=== PATIENT | female | born 1950 | race Caucasian/White ===

== ENCOUNTER → 2017-04-15 | Outpatient (CLI) | payer MEDICARE ==
[2017-04-15 09:00] LABS: CH 30.2; CHCM 32.4; HCT 37.4 % (34.0-46.0); HDW 2.58; MCH 30.2 pg (25.0-35.0); MCHC 32.2 g/dL (31.0-37.0); MCV 93.8 fL (80.0-100.0); RBC 3.98 m/uL (3.80-5.40); RDW 14.8 % (11.5-15.5); WBC 8.2 k/uL (3.8-10.6)
[2017-04-15 09:06] LABS: INR 1.1 (<1.2); Partial Thromboplastin Time 23.8 sec (22.0-30.0); Prothrombin Time 10.7 sec (9.0-12.0)
[2017-04-15 09:23] LABS: Calcium 10.1 mg/dL (8.4-10.2); Potassium 5.1 mmol/L (3.5-5.1); Total Bilirubin 0.5 mg/dL (0.2-1.3); Total Protein 7.4 g/dL (6.3-8.2)
[2017-04-15 10:00] LABS: Appearance,Urine Cloudy (Clear); Bacteria,Urine Occasional /hpf; Bilirubin,Urine Negative (Negative); Glucose,Urine (UA) Negative (Negative); Ketones,Urine Negative (Negative); Leukocyte Esterase,Urine Moderate (Negative); Mucus,Urine Rare /hpf; Nitrite,Urine Negative (Negative); Particle Count 2640; Protein,Urine Negative (Negative); Specific Gravity,Urine 1.009 (1.001-1.035); Squamous Epithelial Cell,Urine 1 /hpf (0-4); UA Billing (MACRO vs. MICRO) MICRO; Urobilinogen,Urine <2.0 mg/dL (<2.0); WBC,Urine 3 /hpf (0-5)
== END | disposition home or self-care (01) ==
LOC: LABPAT 08:06
PROVIDERS: ATTEND Orthopaedic Surgery
DX: Z01.812 Encounter for preprocedural laboratory examination (principal); Z79.01 Long term (current) use of anticoagulants
CPT/HCPCS: 80053; 81001; 85027; 85610; 85730; 87070

== ENCOUNTER → 2017-04-15 | Outpatient (CLI) | payer MEDICARE ==
--- NOTE | 2017-04-20 07:43 | MM ---
Reason for exam: screening (asymptomatic). Last mammogram was performed 1 year and 1 month ago. History: Patient is postmenopausal. Family history of breast cancer in mother at age 65 and breast cancer in sister at age 53. 2 excisional biopsies of the left breast. Excisional biopsy of the right breast. Benign excisional biopsy of the right breast. Took hormonal contraceptives for 23 years beginning at age 19. Took progesterone for 5 years beginning at age 52. Physical Findings: A clinical breast exam by your physician is recommended on an annual basis and results should be correlated with mammographic findings. MG 3D Screening Mammo W/Cad Bilateral CC and MLO view(s) were taken. Prior study comparison: February 29, 2016, bilateral MG 3d screening mammo w/cad. February 27, 2015, bilateral MG screening mammo w CAD. July 01, 2013, bilateral digital screening mammo w/CAD. There are scattered fibroglandular densities. Finding: There are typically benign calcifications in both breasts. No suspicious abnormality. No significant changes in finding since February 29, 2016, February 27, 2015, and July 01, 2013. ASSESSMENT: Benign, BI-RAD 2 RECOMMENDATION: Routine screening mammogram of both breasts in 1 year.
== END | disposition home or self-care (01) ==
LOC: RADMAMWWP 07:41
PROVIDERS: ATTEND Family Medicine
DX: Z12.31 Encounter for screening mammogram for malignant neoplasm of breast (principal)
CPT/HCPCS: 77063; G0202

== ENCOUNTER 2017-08-17 07:38 | Day surgery (SDC) | payer MEDICARE ==
[2017-08-12 15:06] VITALS: BMI 38.7
[2017-08-17 08:03] VITALS: TEMP 98.1
[2017-08-17] MEDS ORDERED: LIDOCAINE 1% 20 ML VIAL (10MG/ML) FOR IV START INTRADERMA ONE ×2 (08:05→08:39)
[2017-08-17] MEDS: LACTATED RINGERS 1,000 ML IV SCH ×2 (08:05→08:39)
[2017-08-17 08:27] LABS: Glucose,Whole Blood 96 mg/dL (75-99)
[2017-08-17] MEDS ORDERED: PROPOFOL 10 MG/ML 20 ML VIAL IV ONE (09:03)
--- NOTE | 2017-08-17 09:36 | P.PCN ---
Date of Procedure: 08/17/17 Procedure(s) Performed: Procedure: Total colonoscopy. Preoperative diagnosis: Screening for neoplasia. Postoperative diagnoses: Sigmoid diverticulosis with no evidence of acute diverticulitis, strictures, polyps or cancer. Preparation: HalfLytely prep. Sedation: Was provided by anesthesia. Brief clinical history: The patient is a 67-year-old female who is scheduled for this evaluation for screening for neoplasia age being her risk factor. The patient had a prior exam more than 10 years ago. She has no abdominal complaints, bleeding or anemia. No family history of colon cancer. Procedure: With the patient on her left lateral decubitus position and after informed consent and adequate sedation, the perianal area was inspected and it did not show any fissures or fistulas. There were no masses felt on digital rectal examination. The Olympus CFQ 160L endoscope was then inserted in the rectum in the usual fashion and advanced to the cecum. The mucosa appeared healthy. No polyps or tumors were seen. Few diverticular orifices were seen scattered in the sigmoid with no evidence of acute diverticulitis or strictures. I retroflexed the endoscope in the rectum before the endoscope was withdrawn. Low-grade internal hemorrhoids were noted but there was no evidence of bleeding. The patient tolerated the procedure well. Plan: The patient was reassured. Discussed dietary measures. She will follow up with you as planned and I recommended repeat exam in 10 years.
[2017-08-17 09:48] LABS: Glucose,Whole Blood 86 mg/dL (75-99)
[2017-08-17 09:55] VITALS: BP 108/75; PULSE 75; RESP 18
== END 2017-08-17 10:09 | disposition home or self-care (01) ==
LOC: ORWHC2ENDO 07:38
DX: Z12.11 Encounter for screening for malignant neoplasm of colon (principal); K57.30 Diverticulosis of large intestine without perforation or abscess without bleeding; K64.8 Other hemorrhoids; E11.9 Type 2 diabetes mellitus without complications; K21.9 Gastro-esophageal reflux disease without esophagitis; I10 Essential (primary) hypertension; E78.00 Pure hypercholesterolemia, unspecified; M19.90 Unspecified osteoarthritis, unspecified site; E78.5 Hyperlipidemia, unspecified; Z79.84 Long term (current) use of oral hypoglycemic drugs; Z79.82 Long term (current) use of aspirin; Z79.899 Other long term (current) drug therapy; Z96.653 Presence of artificial knee joint, bilateral
CPT/HCPCS: J2704; G0121; 45378

== ENCOUNTER 2017-10-06 09:19 | Day surgery (SDC) | payer MEDICARE ==
[2017-10-01 12:15] VITALS: BMI 38.7
[~2017-10-06 09:19] MED LIST: LACTATED RINGERS 1,000 ML IV SCH; LIDOCAINE 1% 20 ML VIAL (10MG/ML) FOR IV START INTRADERMA PRN; ONDANSETRON 4 MG/2 ML VIAL IVP PRN
[2017-10-06] MEDS: PHENYLEPHRINE 10% OPHTH DROPS 5 ML BTL OP ONE ×3 (10:40→11:05)
[2017-10-06 10:42] VITALS: RESP 16; TEMP 97.6
[2017-10-06] MEDS: CYCLOPENTOLATE 1% OPHTH SOLN 2 ML BTL OP ONE ×3 (10:44→11:07)
[2017-10-06] MEDS: FLURBIPROFEN 0.03% OPHTH DROPS 2.5 ML BTL OP ONE ×3 (10:48→11:10)
[2017-10-06 10:55] LABS: Glucose,Whole Blood 99 mg/dL (75-99)
[2017-10-06] MEDS ORDERED: PROPOFOL 10 MG/ML 20 ML VIAL IV ONE (11:18)
[2017-10-06] MEDS ORDERED: BALANCED SALT IRRIG SOLN COMB2 15 ML IRRIG.SOLN INTRAOCULA ONE (11:23)
[2017-10-06] MEDS ORDERED: EPINEPHrine (PF) 0.5 ML in BALANCED SALT IRRIG SOLN COMB2 500 ML IRRIGATION ONE (11:23)
[2017-10-06] MEDS ORDERED: TIMOLOL 0.5% OPHTH SOLN (PF) 0.2 ML DROPERETTE RIGHT EYE ONE (11:24)
[2017-10-06] MEDS ORDERED: HYALURONATE SODIUM INTRAOCULAR 1 EACH SYRINGE (10MG/ML) INTRAOCULA ONE (11:24)
--- NOTE | 2017-10-06 11:51 | P.OP ---
Date of Procedure: 10/06/17 Procedure(s) Performed: PREOPERATIVE DIAGNOSIS: Cataract, right eye. Zonular dehisence (inferiorly) right eye. POSTOPERATIVE DIAGNOSIS: Cataract, right eye, Zonular dehisence right eye. OPERATION: Phacoemulsification cataract, right eye, placement of capsular tension ring, right eye. DESCRIPTION OF PROCEDURE: The patient was taken to the preoperative holding area. Intravenous Propofol was given so as to bring about adequate sedation. The following mixture was given for local anesthesia: 5 mL of 2% lidocaine, 5 mL of 0.75% Marcaine, and 1 mL of Wydase. Approximately 4 mL was injected in the retrobulbar space of the surgical eye. Additional 1 mL was then directed to the temporal area of the surgical eye. This was performed to allow adequate neurological block of the facial muscles. The patient was revived and then taken into the operative room. The patient was prepped and draped in the usual sterile manner for the operative eye. A lid speculum was put into position. The conjunctiva was resected back from the limbus in the 12 o'clock position. Bleeding was controlled with electrocautery. A #69 blade was then used and a half-thickness scleral incision approximately 1-mm posterior to the limbus was made on bare sclera. This was shelved in the clear cornea using a crescent knife. Next a 15-degree blade was used to make a stab incision at the 3 o' clock position at the corneolimbal interface. Keratome blade was then used and the superior wound was extended into the anterior chamber. Viscoelastic was injected into the anterior chamber and to maintain its form. Next, a cystotome was used and a continuous anterior capsulotomy was made without difficulty. Hydrodissection using a blunt cannula and BSS was performed. Phaco probe was then employed and a groove extending from 12 to 6 o'clock in the lens was created. A Jarrell wand was used through the stab incision so as to perform a divide and conquer technique. Next an irrigation aspiration probe was utilized and any residual cortex was removed from the eye. Again, viscoelastic was injected into the anterior chamber. A capsular tension ring was injected into the capsular bag using an injector and a Sinsky hook. An Schuyler posterior chamber lens implant was placed in the cartridge and injected into the anterior chamber without difficulty. The Sinskey hook was utilized to spin the lens into position and this was again performed without any difficulty. The irrigation and aspiration probe was again employed and any residual viscoelastic was removed from the eye. Then BSS was injected into the limbal stab incision and the anterior chamber re-inflated. The conjunctiva was reapproximated using electrocautery. One drop of 0.25% Timoptic was placed over the corneal along with TobraDex ophthalmic ointment. Two sterile patches and a Alegria eye shield were taped into position. The patient was transported to the recovery room in stable condition. Pathology: none sent Condition: stable Disposition: same day
[2017-10-06 12:09] VITALS: BP 125/65; PULSE 73
[2017-10-06] MEDS ORDERED: GENTAMICIN/PREDNISOL AC OPHTH OINT 3.5GM OPHTHALMIC ONE (23:00)
[2017-10-06] MEDS ORDERED: TIMOLOL 0.5% OPHTH DROPS 5 ML BTL OP ONE (23:00)
[2017-10-06] MEDS ORDERED: BUPIVACAINE (PF) 0.75% 5 ML, HYALURONIDASE, HUMAN RECOMB 150 UNIT, LIDOCAINE 2% (PF) 10... MISCELLANE ONE ×3 (23:00)
== END 2017-10-06 12:23 | disposition home or self-care (01) ==
LOC: OR 09:19
PROVIDERS: ATTEND Ophthalmology
DX: E11.36 Type 2 diabetes mellitus with diabetic cataract (principal); T81.31XA Disruption of external operation (surgical) wound, not elsewhere classified, initial encounter; Z79.84 Long term (current) use of oral hypoglycemic drugs; I10 Essential (primary) hypertension; M19.90 Unspecified osteoarthritis, unspecified site; K21.9 Gastro-esophageal reflux disease without esophagitis; Z79.82 Long term (current) use of aspirin; Z79.899 Other long term (current) drug therapy
CPT/HCPCS: 66984; 65785; L8610; V2632; J3470; J2001; J0171; J2704

== ENCOUNTER → 2018-04-19 | Outpatient (CLI) | payer MEDICARE ==
--- NOTE | 2018-04-20 14:41 | MM ---
Reason for exam: screening (asymptomatic). Last mammogram was performed 1 year ago. History: Patient is postmenopausal. Family history of breast cancer in mother at age 65 and breast cancer in sister at age 53. 2 excisional biopsies of the left breast. Excisional biopsy of the right breast. Benign excisional biopsy of the right breast. Took hormonal contraceptives for 23 years beginning at age 19. Took progesterone for 5 years beginning at age 52. Physical Findings: A clinical breast exam by your physician is recommended on an annual basis and results should be correlated with mammographic findings. MG 3D Screening Mammo W/Cad Bilateral CC and MLO view(s) were taken. Prior study comparison: April 15, 2017, bilateral MG 3d screening mammo w/cad. February 29, 2016, bilateral MG 3d screening mammo w/cad. There are scattered fibroglandular densities. Stable benign calcifications. There is no discrete abnormality. No significant changes when compared with prior studies. ASSESSMENT: Benign, BI-RAD 2 RECOMMENDATION: Routine screening mammogram of both breasts in 1 year.
== END | disposition home or self-care (01) ==
LOC: RADMAMWWP 08:37
PROVIDERS: ATTEND Family Medicine
DX: Z12.31 Encounter for screening mammogram for malignant neoplasm of breast (principal)
CPT/HCPCS: 77063; 77067

== ENCOUNTER → 2018-10-12 | Outpatient (CLI) | payer MEDICARE ==
--- NOTE | 2018-10-12 09:47 | BD ---
EXAMINATION TYPE: Axial Bone Density DATE OF EXAM: 10/12/2018 COMPARISON: 02.27.2015 CLINICAL HISTORY: 68 YR OLD FEMALE....ICD-10 CODE: M84.9 DISORDER OF BONE Height: 65 Weight: 257 FRAX RISK QUESTIONS: NOTHING ADDITIONAL TO NOTE HERE RISK FACTORS HISTORY OF: Postmenopausal woman: YES AT ABOUT 55 YRS OLD Lost more than 2 inches in height since high school: YES MEDICATIONS: Additional Medications: BP MEDS, ORAL DIABETIC MEDS, CALCIUM, VIT D3 5000 MG DAILY, PRILOSEC, STATIN FOR CHOLESTEROL Additional History: HYPERTENSION, DIABETIC, CHOLESTEROL EXAM MEASUREMENTS: Bone mineral densitometry was performed using the Postmaster System. Bone mineral density as measured about the Lumbar spine is: ----- L1-L4(G/cm2): 1.689 T Score Values are as follows: ----- L1: 2.5 ----- L2: 4.5 ----- L3: 6.0 ----- L4: 3.8 ----- L1-L4: 4.2 Bone mineral density has: Increased 12.2% since study of: 02.27.2015 Bone mineral density about the R hip (g/cm2): 1.059 Bone mineral density about the L hip (g/cm2): 1.228 T Score values are as follows: -----R Neck: 0.3 -----L Neck: 1.3 -----R Total: 0.4 -----L Total: 1.7 Bone mineral density has: Increased 0.6% since study of: 02.27.2015 FRAX%s: THERE IS A 5.8% CHANCE FOR A MAJOR OSTEOPOROTIC FX AND A 0.2% FOR HIP......PROBABILITY FOR FX IN 10 YRS TIME IMPRESSION: Normal (Values between +1 and -1 indicate normal bone mass). Consider repeating this study in 5 year s or sooner if there is some new clinical indication. NOTE: T-SCORE=SD OF THE YOUNG ADULT MEAN.
== END | disposition home or self-care (01) ==
LOC: RADBDWWP 08:36
PROVIDERS: ATTEND Family Medicine
DX: Z13.820 Encounter for screening for osteoporosis (principal)
CPT/HCPCS: 77080

== ENCOUNTER → 2018-10-12 | Outpatient (CLI) | payer MEDICARE ==
[2018-10-12 10:42] LABS: INR 0.9 (<1.2); Partial Thromboplastin Time 23.9 sec (22.0-30.0)
[2018-10-12 11:56] LABS: Appearance,Urine Cloudy (Clear); Bacteria,Urine Occasional /hpf; Bilirubin,Urine Negative (Negative); Blood,Urine Negative (Negative); Color,Urine Yellow; Glucose,Urine (UA) Negative (Negative); Ketones,Urine Negative (Negative); Leukocyte Esterase,Urine Moderate (Negative); Mucus,Urine Rare /hpf; Nitrite,Urine Negative (Negative); Protein,Urine Trace (Negative); RBC,Urine 1 /hpf (0-5); Specific Gravity,Urine 1.025 (1.001-1.035); Squamous Epithelial Cell,Urine 6 /hpf (0-4); Urobilinogen,Urine <2.0 mg/dL (<2.0); WBC,Urine 4 /hpf (0-5)
== END | disposition home or self-care (01) ==
LOC: LABPAT 09:08
PROVIDERS: ATTEND Orthopaedic Surgery
DX: Z01.812 Encounter for preprocedural laboratory examination (principal); Z79.01 Long term (current) use of anticoagulants
CPT/HCPCS: 36415; 81001; 85610; 85730; 87070

== ENCOUNTER 2018-10-26 09:20 | Inpatient (IN) | payer MEDICARE ==
[2018-10-20 15:13] VITALS: BMI 42.1
[~2018-10-26 09:20] MED LIST changes: +ACETAMINOPHEN TAB 500 MG TAB PO ONE; +DEXAMETHASONE SOD PHOSPHATE 10 MG/ML 1 ML VIAL IV ONE; +HYDROmorphone 0.5 MG/0.5 ML SYRINGE IVP PRN; -LACTATED RINGERS 1,000 ML IV SCH; -LIDOCAINE 1% 20 ML VIAL (10MG/ML) FOR IV START INTRADERMA PRN; +MELOXICAM 7.5 MG TAB PO ONE; +MIDAZOLAM 2 MG/2 ML VIAL IV PRN; +ONDANSETRON 4 MG/2 ML VIAL IVP ONE; -ONDANSETRON 4 MG/2 ML VIAL IVP PRN; +TRANEXAMIC ACID 1,000 MG in SODIUM CHLORIDE 0.9% 100 ML IVPB ONE
[2018-10-26] MEDS: LACTATED RINGERS 1,000 ML IV SCH (13:48)
[2018-10-26] MEDS ORDERED: LIDOCAINE 1% 20 ML VIAL (10MG/ML) FOR IV START SQ ONE (13:50)
[2018-10-26 14:03] LABS: Glucose,Whole Blood 104 mg/dL (75-99)
[2018-10-26] MEDS ORDERED: fentaNYL (PF) 50 MCG/ML 2 ML AMP IVP ONE (14:05)
[2018-10-26] MEDS ORDERED: fentaNYL (PF) 50 MCG/ML 2 ML AMP ONE (14:37)
[2018-10-26] MEDS ORDERED: NEOSTIGMINE 1 MG/ML 10 ML VIAL ONE (14:37)
[2018-10-26] MEDS ORDERED: ROPIVACAINE 5 MG/ML 30 ML VIAL ONE (14:37)
[2018-10-26] MEDS ORDERED: PROPOFOL 10 MG/ML 20 ML VIAL IV ONE (14:37)
[2018-10-26] MEDS ORDERED: LIDOCAINE 1% INJ 10MG/ML (20 ML MDV) ONE (14:37)
[2018-10-26] MEDS ORDERED: ROCURONIUM BROMIDE 10 MG/ML 10 ML VIAL IV ONE (14:37)
[2018-10-26] MEDS ORDERED: PHENYLEPHRINE-0.9% NACL SYG 1 MG/10 ML SYRINGE ONE (14:37)
[2018-10-26] MEDS ORDERED: MIDAZOLAM 2 MG/2 ML VIAL ONE (14:37)
[2018-10-26] MEDS ORDERED: GLYCOPYRROLATE 0.2 MG/ML 2 ML VIAL ONE (14:37)
[2018-10-26] MEDS: ceFAZolin IN SWFI 2 GM/20 ML SYRINGE IVP ONE ×2 (14:40→14:50)
[2018-10-26] MEDS ORDERED: LACTATED RINGERS 1,000 ML IV ONE (16:01)
--- NOTE | 2018-10-26 16:24 | P.OP ---
Date of Procedure: 10/26/18 Preoperative Diagnosis: Severe osteoarthritis the right shoulder with chronic rotator cuff tear Postoperative Diagnosis: Severe osteoarthritis of the right shoulder with chronic rotator cuff tear Procedure(s) Performed: Reverse total shoulder arthroplasty Implants: Biomet comprehensive shoulder system, mini humeral stem, 9 mm porous-coated. Biomet comprehensive reverse shoulder system, humeral bearing, 44 mm x 36 mm, standard Biomet comprehensive reverse shoulder system, humeral tray, 40 mm, standard Biomet comprehensive reverse shoulder, Glenosphere mini baseplate, 25 mm Biomet comprehensive reverse shoulder, central screw, 6.5 mm x 25 mm Biomet comprehensive reverse shoulder, fixed locking screw, 4.75 x 20 mm, 15 mm, 15 mm, 15 mm. Biomet comprehensive reverse shoulder glenosphere, 36 mm, standard All components were press-fit. Articulation is metal on polyethylene. Anesthesia: HUMBERTOA Surgeon: Alex Jameson Lead Instructor/Flight Attendant #1: Evangelina Fung Estimated Blood Loss (ml): 100 Pathology: other (Humeral head) Condition: stable Disposition: PACU Indications for Procedure: This is a patient that presented to my office with severe pain in the shoulder. X-rays demonstrated severe osteoarthritis of the glenohumeral joint of her shoulder. After failure of conservative treatment, we discussed the surgical and nonsurgical treatment options at length. The patient wishes to proceed with a reverse total shoulder arthroplasty. Patient is aware of the complications of the procedure which include but are not limited to infection, hardware failure, persistent pain, dislocation, and nerve injury. Informed consent was obtained. Operative Findings: Operative findings are consistent with severe osteoarthritis the right shoulder with chronic rotator cuff tear Description of Procedure: The patient was seen in the preoperative area, consent was reviewed, and operative site was marked with a skin marker. Patient was then brought to the operating room and given preoperative antibiotics intravenously. Patient was also given 1 g of Tranexamic acid intravenously. A general anesthetic was administered by the anesthesia department. A Cruz catheter was placed by the nursing staff. The patient was then placed in a beachchair position with the bony prominences well-padded and the head secured. The shoulder was then prepped and draped in the usual sterile fashion. A universal timeout was then performed, which confirmed the patient's name, surgical site, ALLERGIES, and consent. A standard deltopectoral approach was performed. The skin and subcutaneous tissue was sharply dissected down to the deltoid fascia. The cephalic vein was then identified and retracted medially. The deltopectoral interval was then utilized to expose the subscapularis tendon. A retractor was then placed under the coracobrachialis tendon retracted medially, and the deltoid. The axillary nerve is palpated and protected throughout the procedure. The subscapularis tendon was then released and retracted medially. The humeral head was then exposed easily. The rotator cuff tendon was found to be completely torn and retracted. After the humeral head was exposed, osteophytes were removed with a Ronguer. Next the humeral stem was prepared. A starter reamer was then placed through the humeral head along the axis of the humeral shaft just lateral to the venkat cular surface and just medial to the rotator cuff attachment. Sequential reaming was performed to the appropriate size reamer was inserted to the #between the 3 and 4 on the reamer. Next the intramedullary resection guide was placed on the reamer shaft. It was placed to the appropriate resection depth and angle of 30 of retroversion. Resection guide block was then secured with Steinmann pins. The proximal humerus was then resected. The block was then removed and the humerus was then broached sequentially to the same size as the reamer. After the broaches fully seated, the broach handle was removed and a broach cover was placed protect the humerus while the glenoid was prepared. Next attention was directed to the glenoid. The appropriate retractors were placed around the glenoid and any remaining soft tissues was removed from around the glenoid. After the glenoid was adequately exposed, the threaded glenoid guide was placed onto the glenoid and a 3.2 mm Steinmann pin was inserted in the glenoid at the desired angle and position, ensuring the pin engaged medial cortical wall. Next, the cannulated baseplate reamer was placed over the top of the Steinmann pin. The glenoid was then reamed to the appropriate depth. The glenoid reamer was then removed, leaving the Steinmann pin. The glenoid Faheem plate implant was placed on the end of the cannulated baseplate impactor. The baseplate was then impacted fully into the glenoid. Next the 6.5 mm central screw was then placed which afforded excellent fixation. The 4 peripheral locking screws were then drilled measured and placed. Next the appropriate glenosphere was opened and impacted into the glenoid baseplate. Attention was then redirected to the humerus. Next a trial humeral tray was placed in the shoulder was reduced. Shoulder was taken through a full range of motion and found to be stable. The shoulder was then gently dislocated, and the trial humerus and humeral tray were removed. The final humeral stem was impacted in the final humeral tray was impacted as well. Shoulder was then relocated. Again the shoulder was taken through a range of motion and found to have no instability. Shoulder was then irrigated with pulsatile lavage. The shoulder was then irrigated with Irrisept solution. The soft tissues were then injected with a ropivacaine solution, which consisted of 246.25 mg of ropivacaine, 0.5 mg of epinephrine, 30 mg of Toradol, 80 g of clonidine, and 48.45 mL of sterile water, for a total of 100 mL of fluid injected. A second dose of 1 g of Tranexamic acid was given. The subscapularis was then repaired with #1 Vicryl. The deltopectoral interval was then closed with #1 Vicryl as well. The subcutaneous tissues were closed with 2-0 Vicryl then Dermabond was placed on the skin. A sterile dressing was then applied, the patient was transported to the recovery room in an arm sling in stable condition. The produce assistant EMILY Roque was required due the complexity of surgery and the need for a skilled medical or surgical instrument maker.
[2018-10-26] MEDS ORDERED: NA PHOS,M-B/NA PHOS,DI-BA 133 ML ENEMA RECTAL PRN (16:38)
[2018-10-26] MEDS ORDERED: DIAZEPAM 5 MG TAB PO PRN (16:38)
[2018-10-26] MEDS ORDERED: MAGNESIUM HYDROXIDE 2,400 MG/10 ML CUP PO PRN (16:38)
[2018-10-26] MEDS ORDERED: HYDROcodone/APAP 5-325MG 1 EACH TAB PO PRN ×2 (16:38)
[2018-10-26] MEDS ORDERED: ONDANSETRON 4 MG/2 ML VIAL IVP PRN (16:38)
[2018-10-26] MEDS ORDERED: HYDROmorphone 0.5 MG/0.5 ML SYRINGE IVP PRN ×3 (16:38)
[2018-10-26] MEDS ORDERED: NALOXONE 0.4 MG/ML 1 ML VIAL IV PRN (16:38)
[2018-10-26] MEDS ORDERED: BISACODYL 10 MG SUPP RECTAL PRN (16:38)
[2018-10-26 17:23] LABS: Glucose,Whole Blood 121 mg/dL (75-99)
--- NOTE | 2018-10-26 17:30 | XR ---
PROCEDURE: XR shoulder limited RT - 1V DATE AND TIME: 10/26/2018 5:21 PM CLINICAL INDICATION: PHH; post op TECHNIQUE: AP view. COMPARISON: None FINDINGS: Right shoulder prosthesis appears anatomic in its positioning and alignment. Postprocedure changes appreciated. No unexpected findings. IMPRESSION: Postoperative one view.
[2018-10-26] MEDS ORDERED: CYCLOBENZAPRINE 10 MG TAB PO PRN (19:59)
[2018-10-26 20:41] LABS: Glucose,Whole Blood 147 mg/dL (75-99)
[2018-10-26] MEDS: INSULIN ASPART (NovoLOG) 100 UNIT/ML VIAL SQ SCH (20:45)
[2018-10-26] MEDS ORDERED: NON-FORMULARY DRUG (Glucosam/Chon-Msm1/C/Mang/Bosw [Glucosamine-Chondroitin Tablet] 1 TAB) PO SCH (21:00)
[2018-10-26] MEDS: SODIUM CHLORIDE 0.9% 1,000 ML IV SCH (21:55)
[2018-10-26] MEDS: GABAPENTIN 300 MG CAP PO SCH (21:58)
[2018-10-26] MEDS: PANTOPRAZOLE 40 MG TABLET PO SCH (21:58)
[2018-10-26] MEDS: metFORMIN 500 MG TAB PO SCH (21:58)
[2018-10-26] MEDS: LISINOPRIL 10 MG TAB PO SCH (21:58)
[2018-10-26] MEDS: ATORVASTATIN 10 MG TAB PO SCH (21:58)
[2018-10-26] MEDS: SENNOSIDES-DOCUSATE SODIUM 1 EACH TAB PO SCH (21:59)
[2018-10-26] MEDS: PROPRANOLOL LA 60 MG CAP.SA.24H PO SCH (21:59)
[2018-10-26] MEDS: ACETAMINOPHEN TAB 325 MG TAB PO PRN (21:59)
[2018-10-27] MEDS: ceFAZolin IN SWFI 2 GM/20 ML SYRINGE IVP SCH ×2 (00:01→10:15)
[2018-10-27] MEDS: ACETAMINOPHEN TAB 325 MG TAB PO PRN ×2 (05:50→23:24)
[2018-10-27 07:06] LABS: Basophils % (A) 0 %; Eosinophils # (A) 0.1 k/uL (0-0.7); Eosinophils % (A) 1 %; HCT 31.1 % (34.0-46.0); HGB 10.3 gm/dL (11.4-16.0); Lymphocytes # (A) 2.2 k/uL (1.0-4.8); Lymphocytes % (A) 18 %; MCH 31.3 pg (25.0-35.0); MCHC 33.1 g/dL (31.0-37.0); MCV 94.7 fL (80.0-100.0); Mean Platelet Volume 7.2; Monocytes # (A) 0.6 k/uL (0-1.0); Monocytes % (A) 5 %; Neutrophils # (A) 9.2 k/uL (1.3-7.7); Neutrophils % (A) 76 %; Platelet Count 271 k/uL (150-450); RBC 3.29 m/uL (3.80-5.40); RDW 14.5 % (11.5-15.5); WBC 12.1 k/uL (3.8-10.6)
[2018-10-27 07:06] LABS: Glucose,Whole Blood 144 mg/dL (75-99)
[2018-10-27 07:25] LABS: Albumin 3.4 g/dL (3.5-5.0); Calcium 8.7 mg/dL (8.4-10.2); Potassium 4.9 mmol/L (3.5-5.1); Total Bilirubin 0.5 mg/dL (0.2-1.3); Total Protein 5.8 g/dL (6.3-8.2)
[2018-10-27] MEDS: LACTATED RINGERS 1,000 ML IV SCH (07:37)
[2018-10-27] MEDS: SODIUM CHLORIDE 0.9% 1,000 ML IV SCH ×2 (07:38→14:00)
[2018-10-27] MEDS: INSULIN ASPART (NovoLOG) 100 UNIT/ML VIAL SQ SCH ×4 (08:56→21:13)
[2018-10-27] MEDS: MELOXICAM 7.5 MG TAB PO SCH (08:58)
[2018-10-27] MEDS: OXYBUTYNIN XL 5 MG TAB.ER.24 PO SCH (08:58)
[2018-10-27] MEDS: CALCIUM CARBONATE 500 MG CHEWABLE PO SCH (08:58)
[2018-10-27] MEDS: metFORMIN 500 MG TAB PO SCH ×2 (08:58→18:08)
[2018-10-27] MEDS: GABAPENTIN 300 MG CAP PO SCH ×2 (08:58→21:13)
[2018-10-27] MEDS: CHOLECALCIFEROL 1,000 UNIT TAB PO SCH (08:59)
[2018-10-27] MEDS: MULTIVITAMINS, THERA 1 EACH TAB PO SCH (09:08)
--- NOTE | 2018-10-27 09:18 | P.DS ---
Providers Date of admission: 10/26/18 12:58 Expected date of discharge: 10/27/18 Attending physician: Alex Jameson Consults: 10/26/18 16:38 Consult Physician Routine Consulting Provider: Doug Oneill Consult Reason/Comments: medical management Do you want consulting provider notified?: Yes Primary care physician: Denise Bear - Discharge Diagnosis(es) (1) S/p reverse total shoulder arthroplasty Current Visit: Yes Status: Acute (2) Osteoarthritis of right shoulder Current Visit: Yes Status: Acute Hospital Course: This is a 68-year-old female with known history of degenerative arthritis of the right shoulder and chronic rotator cuff tear. The patient presents for evaluation. After discussion and consideration patient elects to proceed with reverse total shoulder arthroplasty. The patient is seen preoperatively by Dr. Jameson and medically cleared for surgery by their primary care physician. Patient is admitted to [facility] on 10/26/2018 for reverse total shoulder arthroplasty. The procedures performed without complication or sequelae. The patient is doing well postoperatively. Labs and vital signs are stable on day of discharge. On day of discharge the patient's shoulder incision is healing well. There is minimal erythema. There is no drainage noted at this time. There is minimal soft tissue swelling to the shoulder. Patient has full hand and wrist motion without difficulty or pain. Sensation intact to the right upper extremity. Neurovascular status to the right upper extremity is intact. Opioid start talking form is reviewed and signed at patient bedside. Patient is discharged home in good condition. Please see med rec for accurate list of home medications. Plan - Discharge Summary Discharge Rx Participant: Yes New Discharge Prescriptions: New HYDROcodone/APAP 5-325MG [Vallejo 5-325] 1 - 2 tab PO Q6HR PRN #45 tab PRN Reason: Pain Sennosides [Senokot] 1 tab PO BID #60 tablet No Action Propranolol HCl [Propranolol HCl ER] 120 mg PO HS Lisinopril [Zestril] 10 mg PO HS Gabapentin [Neurontin] 300 mg PO BID Cholecalciferol [Vitamin D3 (25 Mcg = 1000 Iu)] 5,000 unit PO DAILY metFORMIN HCL [Glucophage] 1,000 mg PO BID glipiZIDE XL [Glucotrol XL] 5 mg PO DAILY Oxybutynin Xl [Ditropan XL] 5 mg PO DAILY Omeprazole [PriLOSEC] 20 mg PO HS Atorvastatin [Lipitor] 10 mg PO HS Multivit-Min/Iron/Folic/Lutein [Centrum Silver Women Tablet] 1 tab PO DAILY Glucosam/Nikhil-Msm1/C/Chato/Bosw [Glucosamine-Chondroitin Tablet] 1 tab PO BID Fish Oil/Dha/Epa [Fish Oil 1,200 mg Fish Oil] 1 cap PO BID Calcium Carbonate [Calcium] 600 mg PO DAILY Cyclobenzaprine [Flexeril] 10 mg PO HS PRN PRN Reason: Pain Aspirin EC [Ecotrin Low Dose] 81 mg PO DAILY Discharge Medication List Atorvastatin [Lipitor] 10 mg PO HS 04/28/17 [History] Calcium Carbonate [Calcium] 600 mg PO DAILY 04/28/17 [History] Cholecalciferol [Vitamin D3 (25 Mcg = 1000 Iu)] 5,000 unit PO DAILY 04/28/17 [History] Fish Oil/Dha/Epa [Fish Oil 1,200 mg Fish Oil] 1 cap PO BID 04/28/17 [History] Gabapentin [Neurontin] 300 mg PO BID 04/28/17 [History] Glucosam/Nikhil-Msm1/C/Chato/Bosw [Glucosamine-Chondroitin Tablet] 1 tab PO BID 04/28/17 [History] Lisinopril [Zestril] 10 mg PO HS 04/28/17 [History] Multivit-Min/Iron/Folic/Lutein [Centrum Silver Women Tablet] 1 tab PO DAILY 04/28/17 [History] Omeprazole [PriLOSEC] 20 mg PO HS 04/28/17 [History] Oxybutynin Xl [Ditropan XL] 5 mg PO DAILY 04/28/17 [History] Propranolol HCl [Propranolol HCl ER] 120 mg PO HS 04/28/17 [History] glipiZIDE XL [Glucotrol XL] 5 mg PO DAILY 04/28/17 [History] metFORMIN HCL [Glucophage] 1,000 mg PO BID 04/28/17 [History] Cyclobenzaprine [Flexeril] 10 mg PO HS PRN 08/12/17 [History] Aspirin EC [Ecotrin Low Dose] 81 mg PO DAILY 10/26/18 [History] HYDROcodone/APAP 5-325MG [Vallejo 5-325] 1 - 2 tab PO Q6HR PRN #45 tab 10/27/18 [Rx] Sennosides [Senokot] 1 tab PO BID #60 tablet 10/27/18 [Rx] Follow up Appointment(s)/Referral(s): Alex Jameson DO [Doctor of Osteopathic Medicine] - 2 Weeks Patient Instructions/Handouts: Joint Replacement Surgery (DC) Activity/Diet/Wound Care/Special Instructions: Maintain sling for comfort for at least one week. Dressing to stay in place for 10 days and may be removed by patient or nurse. May shower with dressing in place. Avoid heavy lifting. May start gentle range of motion of the left shoulder as tolerated. Please follow-up with [facility] and call with any questions or concerns, . Discharge Disposition: HOME WITH HOME HEALTH SERVICES
--- NOTE | 2018-10-27 11:53 | P.CONS ---
History of Present Illness - Reason for Consult Consult date: 10/27/18 Medical management Requesting physician: Evangelina Fung - History of Present Illness This is a 68-year-old female patient of Dr. Bear who presented for reverse total shoulder arthroplasty the right shoulder with Dr. Jameson. Patient has a past medical history of severe osteoarthritis right shoulder with chronic rotator cuff tear. EBL was 100 mL. Additional medical history includes diabete s mellitus, GERD, hyperlipidemia, hypertension and urinary incontinence. Today patient currently is sitting in chair. Patient reports her shoulder artery feels much improved. Patient does have slightly increased white count 12.1. Patient denies any acute symptoms. Patient denies cough or shortness of breath. Patient denies any upper respiratory symptoms. Patient denies any nausea or vomiting. Patient denies any burning with urination. Will order urinary analysis to rule out UTI. Patient also having blood pressures in the 90s and heart rate in the low 100s. Patient to continue with IV fluids for the next couple hours recheck vitals. Patient reports she does have blood pressure cuff at home. Patient's creatinine also elevated at 1.38 and bun 21. Patient reports this is chronic for her. Previous creatinine was 1.5 so this is improving. Patient does follow with her PCP for management. Patient denies any chest pain or shortness of breath or patient denies nausea vomiting or diarrhea. Patient denies any urinary burning or frequency. Review of Systems please refer to HPI otherwise unremarkable Past Medical History Past Medical History: Diabetes Mellitus, GERD/Reflux, Hyperlipidemia, Hypertension, Osteoarthritis (OA) Additional Past Medical History / Comment(s): hand tremors, urinary incontinence History of Any Multi-Drug Resistant Organisms: None Reported Past Surgical History: Joint Replacement, Orthopedic Surgery, Tonsillectomy, Tubal Ligation Additional Past Surgical History / Comment(s): repair deviated septum, BILAT CTR, BILAT TKA, COLONOSCOPY, cataracts removed Past Anesthesia/Blood Transfusion Reactions: Postoperative Nausea & Vomiting (PONV) Additional Past Anesthesia/Blood Transfusion Reaction / Comm: no transfusion problems with prior transfusion Past Psychological History: No Psychological Hx Reported Smoking Status: Never smoker Past Alcohol Use History: None Reported Past Drug Use History: None Reported - Past Family History Mother Sister(s) Family Medical History: Cancer Medications and Allergies Home Medications Medication Instructions Recorded Confirmed Type Atorvastatin [Lipitor] 10 mg PO HS 04/28/17 10/26/18 History Calcium Carbonate [Calcium] 600 mg PO DAILY 04/28/17 10/26/18 History Cholecalciferol [Vitamin D3 (25 5,000 unit PO DAILY 04/28/17 10/26/18 History Mcg = 1000 Iu)] Fish Oil/Dha/Epa [Fish Oil 1,200 1 cap PO BID 04/28/17 10/26/18 History mg Fish Oil] Gabapentin [Neurontin] 300 mg PO BID 04/28/17 10/26/18 History Glucosam/Nikhil-Msm1/C/Chato/Bosw 1 tab PO BID 04/28/17 10/26/18 History [Glucosamine-Chondroitin Tablet] Lisinopril [Zestril] 10 mg PO HS 04/28/17 10/26/18 History Multivit-Min/Iron/Folic/Lutein 1 tab PO DAILY 04/28/17 10/26/18 History [Centrum Silver Women Tablet] Omeprazole [PriLOSEC] 20 mg PO HS 04/28/17 10/26/18 History Oxybutynin Xl [Ditropan XL] 5 mg PO DAILY 04/28/17 10/26/18 History Propranolol HCl [Propranolol HCl 120 mg PO HS 04/28/17 10/26/18 History ER] glipiZIDE XL [Glucotrol XL] 5 mg PO DAILY 04/28/17 10/26/18 History metFORMIN HCL [Glucophage] 1,000 mg PO BID 04/28/17 10/26/18 History Cyclobenzaprine [Flexeril] 10 mg PO HS PRN 08/12/17 10/26/18 History Aspirin EC [Ecotrin Low Dose] 81 mg PO DAILY 10/26/18 10/26/18 History HYDROcodone/APAP 5-325MG [Rittman 1 - 2 tab PO Q6HR PRN #45 tab 10/27/18 Rx 5-325] Sennosides [Senokot] 1 tab PO BID #60 tablet 10/27/18 Rx Allergies Allergy/AdvReac Type Severity Reaction Status Date / Time paper tape AdvReac Rash/Hives Uncoded 10/26/18 17:45 Physical Exam Vitals: Vital Signs Temp Pulse Pulse Resp BP BP Pulse Ox 10/27/18 07:00 98.6 F 104 H 17 96/61 91 L 10/27/18 00:56 97.6 F 105 H 18 106/69 93 L 10/26/18 20:38 18 10/26/18 19:57 111/75 10/26/18 19:32 84 18 118/82 10/26/18 19:17 76 18 114/78 10/26/18 19:02 71 18 112/77 10/26/18 18:32 77 18 115/82 10/26/18 18:17 72 18 115/73 92 L 10/26/18 18:01 69 18 107/75 94 L 10/26/18 18:00 97.5 F L 78 16 87/60 95 10/26/18 17:47 97.5 F L 77 18 87/60 95 10/26/18 17:30 75 16 104/52 98 10/26/18 17:15 74 16 107/60 98 10/26/18 17:00 75 16 106/57 95 10/26/18 16:45 97 F L 80 16 98/53 94 L 10/26/18 14:22 80 16 116/57 99 10/26/18 13:38 97.6 F 95 18 146/65 97 Intake and Output 10/26/18 10/27/18 10/27/18 22:59 06:59 14:59 Intake Total 790 480 Output Total 100 Balance 690 480 Intake: IV 650 Intake, IV Titration 140 Amount Sodium Chloride 0.9% 1, 140 000 ml @ 70 mls/hr IV . [id number] [facility] Rx#:[id number] Oral 480 Output: Estimated Blood Loss 100 Other: Voiding Method Toilet # Voids 1 1 Head normocephalic Neck supple Lungs clear to auscultation bilaterally no wheezing or crackles Heart regular rate and rhythm S1-S2, no rub or gallop Abdomen is soft nontender nondistended positive bowel sounds no hepatosplenomegaly Extremities no edema. Right shoulder dressing clean dry and intact arm in sling Neuro alert and orientated to 3 Results CBC & Chem 7: 10/27/18 06:45 10/27/18 06:45 Labs: Abnormal Lab Results - Last 24 Hours (Table) 10/26/18 10/26/18 10/26/18 Range/Units 14:00 17:17 20:30 WBC (3.8-10.6) k/uL RBC (3.80-5.40) m/uL Hgb (11.4-16.0) gm/dL Hct (34.0-46.0) % Neutrophils # (1.3-7.7) k/uL Chloride (98-107) mmol/L Carbon Dioxide (22-30) mmol/L BUN (7-17) mg/dL Creatinine (0.52-1.04) mg/dL Glucose (74-99) mg/dL POC Glucose (mg/dL) 104 H 121 H 147 H (75-99) mg/dL Total Protein (6.3-8.2) g/dL Albumin (3.5-5.0) g/dL 10/27/18 10/27/18 10/27/18 Range/Units 06:45 06:45 06:54 WBC 12.1 H (3.8-10.6) k/uL RBC 3.29 L (3.80-5.40) m/uL Hgb 10.3 L (11.4-16.0) gm/dL Hct 31.1 L (34.0-46.0) % Neutrophils # 9.2 H (1.3-7.7) k/uL Chloride 109 H (98-107) mmol/L Carbon Dioxide 20 L (22-30) mmol/L BUN 21 H (7-17) mg/dL Creatinine 1.38 H (0.52-1.04) mg/dL Glucose 138 H (74-99) mg/dL POC Glucose (mg/dL) 144 H (75-99) mg/dL Total Protein 5.8 L (6.3-8.2) g/dL Albumin 3.4 L (3.5-5.0) g/dL Assessment and Plan Assessment: 1. Status post reversed total arthroplasty of the right shoulder with Dr. jameson. Patient is currently postop day 1 2. Chronic kidney disease stage stage III. Current creatinine 1.38 and bun 21. This is improved from previous draw at 1.5. Patient reports she follows with her PCP for management 3. Leukocytosis. White blood cell 12.1. Urinary analysis has been ordered. Patient denies any acute symptoms 4. Hypotension. Blood pressure systolic in the 90s. Continue IV fluids will recheck BP 5. History of diabetes mellitus. Home meds resumed 6. History of GERD 7. History of hyperlipidemia 8. History of essential hypertension. 9. History of osteoarthritis Thank you for this consultation we'll continue to follow patient closely throughout Time with Patient: Greater than 30 (Greater than 60% of the total time spent in counseling and coordination of care. I performed an examination of the patient and discussed their management with the Nurse Practitioner. I have reviewed the Nurse Practitioner's notes and agree with the documented findings and plan of care)
[2018-10-27 12:02] LABS: Glucose,Whole Blood 175 mg/dL (75-99)
[2018-10-27 13:16] LABS: Appearance,Urine Cloudy (Clear); Bacteria,Urine Rare /hpf; Bilirubin,Urine Negative (Negative); Blood,Urine Negative (Negative); Color,Urine Yellow; Glucose,Urine (UA) Negative (Negative); Hyaline Casts,Urine 6 /lpf (0-2); Ketones,Urine 1+ (Negative); Leukocyte Esterase,Urine Negative (Negative); Mucus,Urine Rare /hpf; Nitrite,Urine Negative (Negative); PH, Urine 5.5 (5.0-8.0); Protein,Urine 1+ (Negative); Specific Gravity,Urine 1.036 (1.001-1.035); Squamous Epithelial Cell,Urine 4 /hpf (0-4); Urobilinogen,Urine <2.0 mg/dL (<2.0); WBC,Urine 2 /hpf (0-5)
[2018-10-27] MEDS ORDERED: SODIUM CHLORIDE 0.9% 500 ML 500 ML IV ONE (13:41)
[2018-10-27 16:51] LABS: Glucose,Whole Blood 114 mg/dL (75-99)
[2018-10-27 20:40] LABS: Glucose,Whole Blood 131 mg/dL (75-99)
[2018-10-27] MEDS: LISINOPRIL 10 MG TAB PO SCH (21:09)
[2018-10-27] MEDS: ATORVASTATIN 10 MG TAB PO SCH (21:13)
[2018-10-27] MEDS: SENNOSIDES-DOCUSATE SODIUM 1 EACH TAB PO SCH (21:14)
[2018-10-27] MEDS: PANTOPRAZOLE 40 MG TABLET PO SCH (21:14)
[2018-10-27] MEDS: PROPRANOLOL LA 60 MG CAP.SA.24H PO SCH (21:17)
[2018-10-28] MEDS: LACTATED RINGERS 1,000 ML IV SCH (01:20)
[2018-10-28] MEDS: SODIUM CHLORIDE 0.9% 1,000 ML IV SCH ×4 (05:36→21:04)
[2018-10-28 07:37] LABS: Glucose,Whole Blood 99 mg/dL (75-99)
[2018-10-28] MEDS: INSULIN ASPART (NovoLOG) 100 UNIT/ML VIAL SQ SCH ×4 (07:55→21:04)
[2018-10-28] MEDS: metFORMIN 500 MG TAB PO SCH (08:34)
[2018-10-28] MEDS: MULTIVITAMINS, THERA 1 EACH TAB PO SCH (08:35)
[2018-10-28] MEDS: MELOXICAM 7.5 MG TAB PO SCH (08:35)
[2018-10-28] MEDS: CALCIUM CARBONATE 500 MG CHEWABLE PO SCH (08:35)
[2018-10-28] MEDS: OXYBUTYNIN XL 5 MG TAB.ER.24 PO SCH (08:35)
[2018-10-28] MEDS: CHOLECALCIFEROL 1,000 UNIT TAB PO SCH (08:36)
[2018-10-28] MEDS: GABAPENTIN 300 MG CAP PO SCH ×2 (08:36→21:00)
[2018-10-28 10:03] LABS: Albumin 3.3 g/dL (3.5-5.0); Calcium 8.8 mg/dL (8.4-10.2); Potassium 4.7 mmol/L (3.5-5.1); Total Bilirubin 0.4 mg/dL (0.2-1.3); Total Protein 5.8 g/dL (6.3-8.2)
[2018-10-28 12:00] LABS: Basophils % (A) 0 %; Eosinophils # (A) 0.1 k/uL (0-0.7); Eosinophils % (A) 1 %; HCT 30.9 % (34.0-46.0); HGB 9.8 gm/dL (11.4-16.0); Lymphocytes # (A) 3.2 k/uL (1.0-4.8); Lymphocytes % (A) 34 %; MCH 31.3 pg (25.0-35.0); MCHC 31.9 g/dL (31.0-37.0); Mean Platelet Volume 8.3; Monocytes # (A) 0.7 k/uL (0-1.0); Monocytes % (A) 8 %; Neutrophils # (A) 5.2 k/uL (1.3-7.7); Neutrophils % (A) 55 %; Platelet Count 275 k/uL (150-450); RBC 3.15 m/uL (3.80-5.40); RDW 13.8 % (11.5-15.5); WBC 9.5 k/uL (3.8-10.6)
[2018-10-28 12:11] LABS: Glucose,Whole Blood 77 mg/dL (75-99)
--- NOTE | 2018-10-28 14:44 | P.PN ---
Subjective Progress Note Date: 10/28/18 This is a 68-year-old female patient of Dr. Bear who presented for reverse total shoulder arthroplasty the right shoulder with Dr. Nieto. Patient has a past medical history of severe osteoarthritis right shoulder with chronic rotator cuff tear. EBL was 100 mL. Additional medical history includes d iabetes mellitus, GERD, hyperlipidemia, hypertension and urinary incontinence. Today patient currently is sitting in chair. Patient reports her shoulder artery feels much improved. Patient does have slightly increased white count 12.1. Patient denies any acute symptoms. Patient denies cough or shortness of breath. Patient denies any upper respiratory symptoms. Patient denies any nausea or vomiting. Patient denies any burning with urination. Will order urinary analysis to rule out UTI. Patient also having blood pressures in the 90s and heart rate in the low 100s. Patient to continue with IV fluids for the next couple hours recheck vitals. Patient reports she does have blood pressure cuff at home. Patient's creatinine also elevated at 1.38 and bun 21. Patient reports this is chronic for her. Previous creatinine was 1.5 so this is improving. Patient does follow with her PCP for management. Patient denies any chest pain or shortness of breath or patient denies nausea vomiting or diarrhea. Patient denies any urinary burning or frequency. On 10/28/2018 patient's alert and oriented 3. Patient's blood pressure meds were held last night. Blood pressure remains marginal. This time will recommend continuing fluid. Patient on high-dose beta justine. Will give tonight and continue to monitor throughout night. Patient's lisinopril also be decreased to 2.5 mg. Creatinine increased slightly. We'll continue to monitor. At this time patient denies any chest pain or shortness of breath. Patient denies nausea vomiting or diarrhea. Patient denies any urinary burning or frequency Objective - Vital Signs Vital signs: Vital Signs Temp 98.7 F 10/28/18 07:00 Pulse 99 10/28/18 13:35 Resp 18 10/28/18 13:35 BP 110/74 10/28/18 13:35 Pulse Ox 97 10/28/18 13:35 Intake & Output 10/27/18 10/28/18 10/28/18 18:59 06:59 18:59 Intake Total 840 600 Balance 840 600 Intake: Intake, IV Titration 600 Amount Sodium Chloride 0.9% 1, 600 000 ml @ 75 mls/hr IV . [id number] [facility] Rx#:[id number] Oral 840 Other: # Voids 3 1 1 - Exam Head normocephalic Neck supple Lungs clear to auscultation bilaterally no wheezing or crackles Heart regular rate and rhythm S1-S2, no rub or gallop Abdomen is soft nontender nondistended positive bowel sounds no hepatosplenomegaly Extremities no edema. Right shoulder dressing clean dry and intact arm in sling Neuro alert and orientated to 3 - Labs CBC & Chem 7: 10/28/18 09:09 10/28/18 09:09 Labs: Abnormal Lab Results - Last 24 Hours (Table) 10/27/18 10/27/18 10/28/18 Range/Units 16:40 20:28 09:09 RBC (3.80-5.40) m/uL Hgb (11.4-16.0) gm/dL Hct (34.0-46.0) % Chloride 112 H (98-107) mmol/L BUN 26 H (7-17) mg/dL Creatinine 1.67 H (0.52-1.04) mg/dL POC Glucose (mg/dL) 114 H 131 H (75-99) mg/dL Total Protein 5.8 L (6.3-8.2) g/dL Albumin 3.3 L (3.5-5.0) g/dL 10/28/18 Range/Units 09:09 RBC 3.15 L (3.80-5.40) m/uL Hgb 9.8 L (11.4-16.0) gm/dL Hct 30.9 L (34.0-46.0) % Chloride (98-107) mmol/L BUN (7-17) mg/dL Creatinine (0.52-1.04) mg/dL POC Glucose (mg/dL) (75-99) mg/dL Total Protein (6.3-8.2) g/dL Albumin (3.5-5.0) g/dL Microbiology - Last 24 Hours (Table) 10/27/18 11:27 Urine Culture - Preliminary Urine,Clean Catch Assessment and Plan Assessment: 1. Status post reversed total arthroplasty of the right shoulder with Dr. nieto. Patient is currently postop day 2 2. Chronic kidney disease stage stage III. Current creatinine 1.38 and bun 21. This is improved from previous draw at 1.5. Patient reports she follows with her PCP for management. Creatinine increasing to 1.67 126. We'll continue with fluid and decrease lisinopril dose 3. Leukocytosis. White blood cell 12.1. Urinary analysis has been ordered. Patient denies any acute symptoms. White blood cell has improved to 9.5 4. Hypotension. Blood pressure systolic in the 90s. Continue normal saline at 100. 5. History of diabetes mellitus. Home meds resumed 6. History of GERD 7. History of hyperlipidemia 8. History of essential hypertension. 9. History of osteoarthritis Thank you for this consultation we'll continue to follow patient closely throughout Continue normal saline at 100 due to hypotension and tachycardia. Patient to receive beta justine dose tonight and continue to monitor blood pressure throughout night I performed an examination of the patient and discussed their management with the Nurse Practitioner. I have reviewed the Nurse Practitioner's notes and agree with the documented findings and plan of care
[2018-10-28 16:51] LABS: Glucose,Whole Blood 78 mg/dL (75-99)
[2018-10-28 20:31] LABS: Glucose,Whole Blood 113 mg/dL (75-99)
[2018-10-28] MEDS ORDERED: LISINOPRIL 2.5 MG TAB PO SCH (21:00)
[2018-10-28] MEDS: ATORVASTATIN 10 MG TAB PO SCH (21:00)
[2018-10-28] MEDS: SENNOSIDES-DOCUSATE SODIUM 1 EACH TAB PO SCH (21:01)
[2018-10-28] MEDS: PANTOPRAZOLE 40 MG TABLET PO SCH (21:01)
[2018-10-28] MEDS: PROPRANOLOL LA 60 MG CAP.SA.24H PO SCH (21:04)
[2018-10-29] MEDS: LACTATED RINGERS 1,000 ML IV SCH (00:29)
[2018-10-29] MEDS: ACETAMINOPHEN TAB 325 MG TAB PO PRN (00:29)
[2018-10-29] MEDS: SODIUM CHLORIDE 0.9% 1,000 ML IV SCH (03:21)
[2018-10-29] MEDS ORDERED: PROPRANOLOL LA 60 MG CAP.SA.24H PO STA (06:23)
[2018-10-29 07:05] LABS: Glucose,Whole Blood 126 mg/dL (75-99)
[2018-10-29 07:38] VITALS: RESP 16; TEMP 98.2
[2018-10-29 07:46] LABS: Albumin 3.8 g/dL (3.5-5.0); Calcium 9.2 mg/dL (8.4-10.2); Potassium 4.9 mmol/L (3.5-5.1); Total Bilirubin 0.7 mg/dL (0.2-1.3); Total Protein 6.5 g/dL (6.3-8.2)
[2018-10-29 07:48] LABS: Basophils # (A) 0.1 k/uL (0-0.2); Basophils % (A) 1 %; Eosinophils # (A) 0.2 k/uL (0-0.7); Eosinophils % (A) 2 %; HGB 10.2 gm/dL (11.4-16.0); Lymphocytes # (A) 3.1 k/uL (1.0-4.8); Lymphocytes % (A) 29 %; MCH 30.7 pg (25.0-35.0); MCHC 31.8 g/dL (31.0-37.0); MCV 96.5 fL (80.0-100.0); Mean Platelet Volume 8.2; Monocytes # (A) 0.7 k/uL (0-1.0); Monocytes % (A) 7 %; Neutrophils # (A) 6.3 k/uL (1.3-7.7); Neutrophils % (A) 59 %; Platelet Count 257 k/uL (150-450); RBC 3.31 m/uL (3.80-5.40); RDW 14.9 % (11.5-15.5); WBC 10.6 k/uL (3.8-10.6)
--- NOTE | 2018-10-29 08:13 | P.PN ---
Subjective Progress Note Date: 10/29/18 This is a 68-year-old female who is status post reverse right total shoulder arthroplasty. This is postoperative day #3. Patient's discharge has been postponed due to asymptomatic hypotension and tachycardia. Patient has been closely followed by internal medicine for this. Patient denies any dizziness today. Patient states that her right shoulder is somewhat sore, but overall the pain is well controlled. Patient denies any new symptoms today. Objective - Vital Signs Vital signs: Vital Signs Temp 98.2 F 10/29/18 07:00 Pulse 111 H 10/29/18 07:00 Resp 16 10/29/18 07:00 BP 124/85 10/29/18 07:00 Pulse Ox 92 L 10/29/18 07:00 Intake & Output 10/28/18 10/29/18 10/29/18 18:59 06:59 18:59 Other: # Voids 1 1 - Exam Vital signs are stable. Patient is in no acute distress and is alert and oriented 3. Patient has full range of motion of the right wrist and hand. Dressing is clean, dry, and intact. There is mild swelling of the right shoulder. Sensation is intact. Neurovascular status and circulatory status are intact. - Labs CBC & Chem 7: 10/29/18 06:36 10/29/18 06:36 Labs: Abnormal Lab Results - Last 24 Hours (Table) 10/28/18 10/28/18 10/28/18 Range/Units 09:09 09:09 20:19 RBC 3.15 L (3.80-5.40) m/uL Hgb 9.8 L (11.4-16.0) gm/dL Hct 30.9 L (34.0-46.0) % Chloride 112 H (98-107) mmol/L BUN 26 H (7-17) mg/dL Creatinine 1.67 H (0.52-1.04) mg/dL Glucose (74-99) mg/dL POC Glucose (mg/dL) 113 H (75-99) mg/dL Total Protein 5.8 L (6.3-8.2) g/dL Albumin 3.3 L (3.5-5.0) g/dL 10/29/18 10/29/18 10/29/18 Range/Units 06:36 06:36 06:46 RBC 3.31 L (3.80-5.40) m/uL Hgb 10.2 L (11.4-16.0) gm/dL Hct 32.0 L (34.0-46.0) % Chloride 109 H (98-107) mmol/L BUN 22 H (7-17) mg/dL Creatinine 1.37 H (0.52-1.04) mg/dL Glucose 119 H (74-99) mg/dL POC Glucose (mg/dL) 126 H (75-99) mg/dL Total Protein (6.3-8.2) g/dL Albumin (3.5-5.0) g/dL Microbiology - Last 24 Hours (Table) 10/27/18 11:27 Urine Culture - Final Urine,Clean Catch Assessment and Plan (1) S/p reverse total shoulder arthroplasty Current Visit: Yes Status: Acute Code(s): Z96.619 - PRESENCE OF UNSPECIFIED ARTIFICIAL SHOULDER JOINT SNOMED Code(s): 340036518 (2) Osteoarthritis of right shoulder Current Visit: Yes Status: Acute Code(s): M19.011 - PRIMARY OSTEOARTHRITIS, RIGHT SHOULDER SNOMED Code(s): 657282353604761 Plan: 1. Continue routine postoperative care and pain control. 2. Maintain arm sling for comfort. 3. Appreciate input from internal medicine. 4. Patient is in good condition for discharge home from an orthopedic standpoint when cleared medically.
--- NOTE | 2018-10-29 08:15 | P.DS ---
Providers Date of admission: 10/26/18 12:58 Expected date of discharge: 10/29/18 Attending physician: Alex Jameson Consults: 10/26/18 16:38 Consult Physician Routine Consulting Provider: Doug Oneill Consult Reason/Comments: medical management Do you want consulting provider notified?: Yes Primary care physician: Denise Bear - Discharge Diagnosis(es) (1) S/p reverse total shoulder arthroplasty Current Visit: Yes Status: Acute (2) Osteoarthritis of right shoulder Current Visit: Yes Status: Acute Hospital Course: This is a 68-year-old female with known history of degenerative arthritis of the right shoulder and chronic rotator cuff tear. The patient presents for evaluation. After discussion and consideration patient elects to proceed with reverse total shoulder arthroplasty. The patient is seen preoperatively by Dr. Jameson and medically cleared for surgery by their primary care physician. Patient is admitted to [facility] on 10/26/2018 for reverse total shoulder arthroplasty. The procedures performed without complication or sequelae. The patient is doing well postoperatively. Labs and vital signs are stable on day of discharge. On day of discharge the patient's shoulder incision is healing well. There is minimal erythema. There is no drainage noted at this time. There is minimal soft tissue swelling to the shoulder. Patient has full hand and wrist motion without difficulty or pain. Sensation intact to the right upper extremity. Neurovascular status to the right upper extremity is intact. Opioid start talking form is reviewed and signed at patient bedside. Patient is discharged home in good condition. Please see med rec for accurate list of home medications. Plan - Discharge Summary Discharge Rx Participant: Yes New Discharge Prescriptions: New HYDROcodone/APAP 5-325MG [Hilbert 5-325] 1 - 2 tab PO Q6HR PRN #45 tab PRN Reason: Pain Sennosides [Senokot] 1 tab PO BID #60 tablet No Action Propranolol HCl [Propranolol HCl ER] 120 mg PO HS Lisinopril [Zestril] 10 mg PO HS Gabapentin [Neurontin] 300 mg PO BID Cholecalciferol [Vitamin D3 (25 Mcg = 1000 Iu)] 5,000 unit PO DAILY metFORMIN HCL [Glucophage] 1,000 mg PO BID glipiZIDE XL [Glucotrol XL] 5 mg PO DAILY Oxybutynin Xl [Ditropan XL] 5 mg PO DAILY Omeprazole [PriLOSEC] 20 mg PO HS Atorvastatin [Lipitor] 10 mg PO HS Multivit-Min/Iron/Folic/Lutein [Centrum Silver Women Tablet] 1 tab PO DAILY Glucosam/Nikhil-Msm1/C/Chato/Bosw [Glucosamine-Chondroitin Tablet] 1 tab PO BID Fish Oil/Dha/Epa [Fish Oil 1,200 mg Fish Oil] 1 cap PO BID Calcium Carbonate [Calcium] 600 mg PO DAILY Cyclobenzaprine [Flexeril] 10 mg PO HS PRN PRN Reason: Pain Aspirin EC [Ecotrin Low Dose] 81 mg PO DAILY Discharge Medication List Atorvastatin [Lipitor] 10 mg PO HS 04/28/17 [History] Calcium Carbonate [Calcium] 600 mg PO DAILY 04/28/17 [History] Cholecalciferol [Vitamin D3 (25 Mcg = 1000 Iu)] 5,000 unit PO DAILY 04/28/17 [History] Fish Oil/Dha/Epa [Fish Oil 1,200 mg Fish Oil] 1 cap PO BID 04/28/17 [History] Gabapentin [Neurontin] 300 mg PO BID 04/28/17 [History] Glucosam/Nikhil-Msm1/C/Chato/Bosw [Glucosamine-Chondroitin Tablet] 1 tab PO BID 04/28/17 [History] Lisinopril [Zestril] 10 mg PO HS 04/28/17 [History] Multivit-Min/Iron/Folic/Lutein [Centrum Silver Women Tablet] 1 tab PO DAILY 04/28/17 [History] Omeprazole [PriLOSEC] 20 mg PO HS 04/28/17 [History] Oxybutynin Xl [Ditropan XL] 5 mg PO DAILY 04/28/17 [History] Propranolol HCl [Propranolol HCl ER] 120 mg PO HS 04/28/17 [History] glipiZIDE XL [Glucotrol XL] 5 mg PO DAILY 04/28/17 [History] metFORMIN HCL [Glucophage] 1,000 mg PO BID 04/28/17 [History] Cyclobenzaprine [Flexeril] 10 mg PO HS PRN 08/12/17 [History] Aspirin EC [Ecotrin Low Dose] 81 mg PO DAILY 10/26/18 [History] HYDROcodone/APAP 5-325MG [Hilbert 5-325] 1 - 2 tab PO Q6HR PRN #45 tab 10/27/18 [Rx] Sennosides [Senokot] 1 tab PO BID #60 tablet 10/27/18 [Rx] Follow up Appointment(s)/Referral(s): Denise Bear MD [Primary Care Provider] - 11/03/18 1:15 pm Alex Jameson DO [Doctor of Osteopathic Medicine] - 11/10/18 1:30 pm (Appointment set with Evangelina DIAZ) Patient Instructions/Handouts: Joint Replacement Surgery (DC) Activity/Diet/Wound Care/Special Instructions: Maintain sling for comfort for at least one week. Dressing to stay in place for 10 days and may be removed by patient or nurse. May shower with dressing in place. Avoid heavy lifting. May start gentle range of motion of the left shoulder as tolerated. Please follow-up with [facility] and call with any questions or concerns, . Discharge Disposition: HOME WITH HOME HEALTH SERVICES
[2018-10-29] MEDS: INSULIN ASPART (NovoLOG) 100 UNIT/ML VIAL SQ SCH (08:24)
[2018-10-29] MEDS: CHOLECALCIFEROL 1,000 UNIT TAB PO SCH (08:36)
[2018-10-29] MEDS: MELOXICAM 7.5 MG TAB PO SCH (08:37)
[2018-10-29] MEDS: GABAPENTIN 300 MG CAP PO SCH (08:38)
[2018-10-29] MEDS: MULTIVITAMINS, THERA 1 EACH TAB PO SCH (08:38)
[2018-10-29] MEDS: OXYBUTYNIN XL 5 MG TAB.ER.24 PO SCH (08:38)
[2018-10-29] MEDS: CALCIUM CARBONATE 500 MG CHEWABLE PO SCH (08:39)
[2018-10-29 11:05] VITALS: BP 109/72; PULSE 88
[2018-10-29 11:53] LABS: Glucose,Whole Blood 145 mg/dL (75-99)
--- NOTE | 2018-10-29 12:41 | P.PN ---
Subjective Progress Note Date: 10/29/18 This is a 68-year-old female patient of Dr. Bear who presented for reverse total shoulder arthroplasty the right shoulder with Dr. Nieto. Patient has a past medical history of severe osteoarthritis right shoulder with chronic rotator cuff tear. EBL was 100 mL. Additional medical history includes d iabetes mellitus, GERD, hyperlipidemia, hypertension and urinary incontinence. Today patient currently is sitting in chair. Patient reports her shoulder artery feels much improved. Patient does have slightly increased white count 12.1. Patient denies any acute symptoms. Patient denies cough or shortness of breath. Patient denies any upper respiratory symptoms. Patient denies any nausea or vomiting. Patient denies any burning with urination. Will order urinary analysis to rule out UTI. Patient also having blood pressures in the 90s and heart rate in the low 100s. Patient to continue with IV fluids for the next couple hours recheck vitals. Patient reports she does have blood pressure cuff at home. Patient's creatinine also elevated at 1.38 and bun 21. Patient reports this is chronic for her. Previous creatinine was 1.5 so this is improving. Patient does follow with her PCP for management. Patient denies any chest pain or shortness of breath or patient denies nausea vomiting or diarrhea. Patient denies any urinary burning or frequency. On 10/28/2018 patient's alert and oriented 3. Patient's blood pressure meds were held last night. Blood pressure remains marginal. This time will recommend continuing fluid. Patient on high-dose beta justine. Will give tonight and continue to monitor throughout night. Patient's lisinopril also be decreased to 2.5 mg. Creatinine increased slightly. We'll continue to monitor. At this time patient denies any chest pain or shortness of breath. Patient denies nausea vomiting or diarrhea. Patient denies any urinary burning or frequency On 10/29/2018 patient is alert and oriented 3. Patient was having hypotension and increased heart rate. Blood pressure meds were held last night due to loss of IV access. Patient's home dose of Inderal was given early this AM. Blood pressure has remained stable. Discussed with patient that patient should follow-up with her PCP for further adjustment of this medication recommend possible decreased dose. Will DC patient's lisinopril. Creatinine trending down. Will order repeat CMP for 3 days. Patient educated on monitoring of blood pressure medication at home. At this time patient denies chest pain or shortness of breath. Patient denies nausea vomiting or diarrhea. Patient denies any urinary burning or frequency Objective - Vital Signs Vital signs: Vital Signs Temp 98.2 F 10/29/18 07:00 Pulse 88 10/29/18 11:02 Resp 16 10/29/18 08:00 BP 109/72 10/29/18 11:02 Pulse Ox 92 L 10/29/18 07:00 Intake & Output 10/28/18 10/29/18 10/29/18 18:59 06:59 18:59 Other: # Voids 1 1 - Exam Head normocephalic Neck supple Lungs clear to auscultation bilaterally no wheezing or crackles Heart regular rate and rhythm S1-S2, no rub or gallop Abdomen is soft nontender nondistended positive bowel sounds no hepatosplenomegaly Extremities no edema. Right shoulder dressing clean dry and intact arm in sling Neuro alert and orientated to 3 - Labs CBC & Chem 7: 10/29/18 06:36 10/29/18 06:36 Labs: Abnormal Lab Results - Last 24 Hours (Table) 10/28/18 10/29/18 10/29/18 Range/Units 20:19 06:36 06:36 RBC 3.31 L (3.80-5.40) m/uL Hgb 10.2 L (11.4-16.0) gm/dL Hct 32.0 L (34.0-46.0) % Chloride 109 H (98-107) mmol/L BUN 22 H (7-17) mg/dL Creatinine 1.37 H (0.52-1.04) mg/dL Glucose 119 H (74-99) mg/dL POC Glucose (mg/dL) 113 H (75-99) mg/dL 10/29/18 10/29/18 Range/Units 06:46 11:42 RBC (3.80-5.40) m/uL Hgb (11.4-16.0) gm/dL Hct (34.0-46.0) % Chloride (98-107) mmol/L BUN (7-17) mg/dL Creatinine (0.52-1.04) mg/dL Glucose (74-99) mg/dL POC Glucose (mg/dL) 126 H 145 H (75-99) mg/dL Microbiology - Last 24 Hours (Table) 10/27/18 11:27 Urine Culture - Final Urine,Clean Catch Assessment and Plan Assessment: 1. Status post reversed total arthroplasty of the right shoulder with Dr. nieto. Patient is currently postop day 2 2. Chronic kidney disease stage stage III. Current creatinine 1.38 and bun 21. This is improved from previous draw at 1.5. Patient reports she follows with her PCP for management. Creatinine increasing to 1.67 126. We'll continue with fluid and decrease lisinopril dose. Creatinine is trending down. Patient advised to follow-up with her PCP for further management. Lisinopril be DC'd due to hypotension and increased creatinine 3. Leukocytosis. White blood cell 12.1. Urinary analysis has been ordered. Patient denies any acute symptoms. White blood cell has improved to 9.5 4. Hypotension. Blood pressure systolic in the 90s. Patient did receive home dose of Inderal this AM. Blood pressure has remained stable throughout morning. Discussed with patient the close monitoring will be needed and possible adjustment of dose per PCP. Patient does have blood pressure cuff at home and agrees to monitor closely at home 5. History of diabetes mellitus. Home meds resumed 6. History of GERD 7. History of hyperlipidemia 8. History of essential hypertension. 9. History of osteoarthritis Thank you for this consultation we'll continue to follow patient closely throughout I performed an examination of the patient and discussed their management with the Nurse Practitioner. I have reviewed the Nurse Practitioner's notes and agree with the documented findings and plan of care
--- NOTE | 2018-10-29 13:15 | CDI ---
Documentation Clarification Form Date: 10/29/2018 1:00:24 PM From: Selin MaloneGerardoJASON cortez, CCDS Admit Date: 10/26/2018 12:58:00 PM Patient Name: Ellen Warner Visit Number: [id number] Discharge Date: ATTENTION: The Clinical Documentation Specialists (CDI) and [facility] Coding Staff appreciate your assistance in clarifying documentation. Please respond to the clarification below the line at the bottom and electronically sign. The CDI & [facility] Coding staff will review the response and follow-up if needed. Please note: Queries are made part of the Legal Health Record. If you have any questions, please contact the author of this message via ITS. Dr. Doug Oneill: Per the 10/29 orthopedic progress note: "This is postoperative day #3. Patient's discharge has been postponed due to asymptomatic hypotension and tachycardia." Patients Admitting Diagnosis: Elective admission for right total shoulder arthroplasty Post-Operative Diagnosis: Same Procedure performed: Right Reverse Total Shoulder Arthroplasty History/Risk Factors: Severe osteoarthritis, DM II, GERD, Hyperlipidemia, Hypertension, Incontinence. Clinical Indicators: Shoulder surgery on 10/26. Per the medical management consult addendum on 10/27: "Patient having asymptomatic hypotension. Blood pressure in the 70s. Will give 500 normal saline bolus. Maintain fluids at 75 recheck blood pressure frequently. Parameters set around blood pressure medication. Recommend monitoring patient for an additional 24 hours." BP: 10/26: 146/65 - 98/53; 10/27: 106/69 - 71/49*; 10/28 124/85; 10/29: 124/85 - 109/72 Treatment: IV fluids, blood pressure monitored. Please clarify if the patient's hypotension in the postoperative period is a significant postoperative complication resulting in a delay of the patient's discharge: ____ Yes ____ No Other, please specify: Unable to determine Revised August 2018 yes MTDD
== END 2018-10-29 13:46 | disposition home or self-care (01) | DRG 483 ==
LOC: 2ORMAIN 12:58 → 4SSUR 16:43
PROVIDERS: ADMIT Orthopaedic Surgery; ATTEND Orthopaedic Surgery
PROC: 0RRJ00Z Replacement of Right Shoulder Joint with Reverse Ball and Socket Synthetic Substitute, Open Approach (ICD-10-PCS; principal; 2018-10-26 14:55)
DX: M19.011 Primary osteoarthritis, right shoulder (principal); E11.22 Type 2 diabetes mellitus with diabetic chronic kidney disease; E11.42 Type 2 diabetes mellitus with diabetic polyneuropathy; N18.3 Chronic kidney disease, stage 3 (moderate); I95.81 Postprocedural hypotension; M75.101 Unspecified rotator cuff tear or rupture of right shoulder, not specified as traumatic; E78.5 Hyperlipidemia, unspecified; K21.9 Gastro-esophageal reflux disease without esophagitis; R32 Unspecified urinary incontinence; I12.9 Hypertensive chronic kidney disease with stage 1 through stage 4 chronic kidney disease, or unspecified chronic kidney disease; E78.00 Pure hypercholesterolemia, unspecified; G25.0 Essential tremor; D72.829 Elevated white blood cell count, unspecified; R29.6 Repeated falls; Z79.82 Long term (current) use of aspirin; Z79.84 Long term (current) use of oral hypoglycemic drugs; Z79.899 Other long term (current) drug therapy; Z96.653 Presence of artificial knee joint, bilateral; Z98.51 Tubal ligation status; Z98.890 Other specified postprocedural states; Z98.42 Cataract extraction status, left eye; Z98.41 Cataract extraction status, right eye; Z91.048 Other nonmedicinal substance allergy status; Z80.9 Family history of malignant neoplasm, unspecified
CPT/HCPCS: 80053; 81001; 85025; 87086; 88300; 93005

== ENCOUNTER → 2020-01-12 | Outpatient (CLI) | payer MEDICARE ==
--- NOTE | 2020-01-13 08:49 | MM ---
Reason for exam: screening (asymptomatic). Last mammogram was performed 1 year and 9 months ago. History: Patient is postmenopausal. Family history of breast cancer in mother at age 65 and breast cancer in sister at age 53. 2 excisional biopsies of the left breast. Excisional biopsy of the right breast. Benign excisional biopsy of the right breast. Took hormonal contraceptives for 23 years beginning at age 19. Took progesterone for 5 years beginning at age 52. Physical Findings: A clinical breast exam by your physician is recommended on an annual basis and results should be correlated with mammographic findings. MG 3D Screening Mammo W/Cad Bilateral CC and MLO view(s) were taken. Prior study comparison: April 19, 2018, bilateral MG 3d screening mammo w/cad. April 15, 2017, bilateral MG 3d screening mammo w/cad. The breast tissue is heterogeneously dense. This may lower the sensitivity of mammography. Benign appearing bilateral calcifications. There is chronic nodularity in the left breast. No significant changes when compared with prior studies. ASSESSMENT: Benign, BI-RAD 2 RECOMMENDATION: Routine screening mammogram of both breasts in 1 year.
== END | disposition home or self-care (01) ==
LOC: RADMAMWWP 09:28
PROVIDERS: ATTEND Family Medicine
DX: Z12.31 Encounter for screening mammogram for malignant neoplasm of breast (principal)
CPT/HCPCS: 77063; 77067

== ENCOUNTER → 2020-11-21 | Outpatient (CLI) | payer MEDICARE ==
--- NOTE | 2020-11-21 17:46 | ECHOF ---
Referral Reason:R01.1 Cardiac Murmur MEASUREMENTS -------- HEIGHT: 167.6 cm WEIGHT: 110.7 kg BP: 158/80 RVIDd: 2.6 cm (< 3.3) IVSd: 1.2 cm (0.6 - 1.1) LVIDd: 4.2 cm (3.9 - 5.3) LVPWd: 1.2 cm (0.6 - 1.1) IVSs: 1.7 cm LVIDs: 2.7 cm LVPWs: 1.9 cm LA Diam: 3.4 cm (2.7 - 3.8) LAESV Index (A-L): 25.30 ml/m Ao Diam: 3.3 cm (2.0 - 3.7) AV Cusp: 2.0 cm (1.5 - 2.6) MV EXCURSION: 16.920 mm (> 18.000) MV EF SLOPE: 84 mm/s (70 - 150) EPSS: 1.0 cm MV E Isaiah: 0.71 m/s MV DecT: 404 ms MV A Isaiah: 0.87 m/s MV E/A Ratio: 0.82 AR PHT: 431 ms RAP: 5.00 mmHg RVSP: 38.81 mmHg FINDINGS -------- Sinus rhythm. This was a technically good study. The left ventricular size is normal. There is borderline concentric left ventricular hypertrophy. Overall left ventricular systolic function is normal with, an EF between 60 - 65 %. The right ventricle is normal in size. Normal LA size by volume 22+/-6 ml/m2. The right atrium is normal in size. Interatrial and interventricular septum intact. There is mild aortic valve sclerosis. Trace to mild aortic regurgitation. Mild mitral regurgitation is present. Mild tricuspid regurgitation present. There is mild pulmonary hypertension. The right ventricular systolic pressure, as measured by Doppler, is 38.81mmHg. There is no pulmonic regurgitation present. The aortic root size is normal. Normal inferior vena cava with normal inspiratory collapse consistent with estimated right atrial pre ssure of 5 mmHg. There is no pericardial effusion. CONCLUSIONS -------- 1. The left ventricular size is normal. 2. There is borderline concentric left ventricular hypertrophy. 3. Overall left ventricular systolic function is normal with, an EF between 60 - 65 %. 4. There is mild aortic valve sclerosis. 5. Trace to mild aortic regurgitation. 6. Mild mitral regurgitation is present. 7. Mild tricuspid regurgitation present. 8. There is mild pulmonary hypertension. 9. The right ventricular systolic pressure, as measured by Doppler, is 38.81mmHg. 10. There is no pericardial effusion. DROP FORGE HAND: Cece Kay RDCS
== END | disposition home or self-care (01) ==
LOC: RADECHMAIN 08:16
PROVIDERS: ATTEND Family Medicine
DX: I08.3 Combined rheumatic disorders of mitral, aortic and tricuspid valves (principal); I27.20 Pulmonary hypertension, unspecified
CPT/HCPCS: 93306

== ENCOUNTER → 2021-03-29 | Outpatient (CLI) | payer MEDICARE ==
--- NOTE | 2021-04-01 11:45 | MM ---
Reason for exam: screening (asymptomatic). Last mammogram was performed 1 year and 3 months ago. History: Patient is postmenopausal. Family history of breast cancer in mother at age 65 and breast cancer in sister at age 53. 2 excisional biopsies of the left breast. Excisional biopsy of the right breast. Benign excisional biopsy of the right breast. Took hormonal contraceptives for 23 years beginning at age 19. Took progesterone for 5 years beginning at age 52. Physical Findings: A clinical breast exam by your physician is recommended on an annual basis and results should be correlated with mammographic findings. MG 3D Screening Mammo W/Cad Bilateral CC and MLO view(s) were taken. Prior study comparison: January 12, 2020, bilateral MG 3d screening mammo w/cad. April 19, 2018, bilateral MG 3d screening mammo w/cad. The breast tissue is heterogeneously dense. This may lower the sensitivity of mammography. There are multiple benign appearing round linear dystrophic calcifications bilaterally. There is no discrete abnormality. ASSESSMENT: Benign, BI-RAD 2 RECOMMENDATION: Routine screening mammogram of both breasts in 1 year.
== END | disposition home or self-care (01) ==
LOC: RADMAMWWP 10:25
PROVIDERS: ATTEND Family Medicine
DX: Z12.31 Encounter for screening mammogram for malignant neoplasm of breast (principal); Z80.3 Family history of malignant neoplasm of breast; Z78.0 Asymptomatic menopausal state
CPT/HCPCS: 77063; 77067

== ENCOUNTER → 2022-05-02 | Outpatient (CLI) | payer OTHER ==
--- NOTE | 2022-05-05 08:12 | MM ---
Reason for Exam: Screening (asymptomatic). Last mammogram was performed 1 year(s) and 1 month(s) ago. Patient History: Menarche at age 13. First Full-Term at age 23. Postmenopausal. Progesterone for 5 years from age 52 until age 57. Hormonal Contraceptives for 23 years from age 19 until age 42. Excisional Biopsy on the Left side. Excisional Biopsy on the Left side. Excisional Biopsy on the Right side. Benign Excisional Biopsy on the right side. Sister had breast cancer, age 53. Mother had breast cancer, age 65. Risk Values: Alondra 5 year model risk: 10.5%. NCI Lifetime model risk: 24.9%. Prior Study Comparison: 02/29/2016 Bilateral Screening Mammogram, [facility]. 04/15/2017 Bilateral Screening Mammogram, [facility]. 04/19/2018 Bilateral Screening Mammogram, [facility]. 01/12/2020 Bilateral Screening Mammogram, [facility]. 03/29/2021 Bilateral Screening Mammogram, [facility]. Tissue Density: There are scattered fibroglandular densities. Findings: Analyzed By CAD. There is no suspicious group of microcalcifications or new suspicious mass in either breast. Overall Assessment: Benign, BI-RAD 2 Management: Screening Mammogram of both breasts in 1 year. A clinical breast exam by your physician is recommended on an annual basis and results should be correlated with mammographic findings. Electronically signed and approved by: Emil Walker M.D. Radiologis
== END | disposition home or self-care (01) ==
LOC: RADMAMWWP 12:47
PROVIDERS: ATTEND Family Medicine
DX: Z12.31 Encounter for screening mammogram for malignant neoplasm of breast (principal); Z78.0 Asymptomatic menopausal state; Z80.3 Family history of malignant neoplasm of breast
CPT/HCPCS: 77063; 77067

== ENCOUNTER → 2023-05-04 | Outpatient (CLI) | payer OTHER ==
--- NOTE | 2023-05-04 17:27 | BD ---
EXAMINATION TYPE: Axial Bone Density DATE OF EXAM: 05/04/2023 CLINICAL HISTORY: 73 years old Female. ICD-10 CODE: Z78.0 ASYMPTOMATIC MENOPAUSAL Height: 65 Weight: 237.2 FRAX RISK QUESTIONS: Alcohol (3 or more units per day): no Family History (Parent hip fracture): no Glucocorticoids (More than 3mos): no History of Fracture in Adulthood: no Secondary Osteoporosis: 1. Type 1 Diabetes: no 2. Hyperthyroidism: no 3. Menopause before 45: no 4. Malnutrition: no 5. Chronic liver disease: no Rheumatoid Arthritis: no Current Tobacco Use: no RISK FACTORS HISTORY OF: Hip Fracture (Right/Left): no Spine Fracture: no History of Wrist Fracture: no Surgery to Spine/Hip(right/left)/Wrist (right/left): no Family History of Osteoporosis: Mother, Sister Active: no Diet low in dairy products/other sources of calcium: no Postmenopausal woman: yes Take estrogen and/or progesterone medications: no Lost more than 2 inches in height since high school: yes Frequent falls: no Poor Health: no Hyperparathyroidism: no Adrenal Insufficiency: no MEDICATIONS: Prednisone or other steroids: no Thyroid Medications: no Osteoporosis Medications: no Additional Medications: BP Meds, Cholesterol Meds, Reflux Meds, Vit D, Calcium, Multi Vit, Metformin Additional History: EXAM MEASUREMENTS: Bone mineral densitometry was performed using the [employer] System. Bone mineral density as measured about the Lumbar spine is: ----- L1-L4(G/cm2):0.819 T Score Values are as follows: ----- L1: 2.3 ----- L2: 5.9 ----- L3: 6.4 ----- L4: 6.9 ----- L1-L4: 5.3 Z Score Values are as follows: ----- L1: 2.8 ----- L2: 6.4 ----- L3: 7.0 ----- L4: 7.4 ----- L1-L4: 5.9 Bone mineral density has: INCREASED 7.7 % since study of: 10/12/2018 Bone mineral density about the R hip (g/cm2): 1.095 Bone mineral density about the L hip (g/cm2): 1.090 T Score values are as follows: -----R Neck: 0.4 -----L Neck: 0.4 -----R Total: 0.9 -----L Total: 1.3 Z Score values are as follows: -----R Neck: 1.5 -----L Neck: 1.25 -----R Total: 1.9 -----L Total: 1.7 Bone mineral density has: increased 0.5 % since study of: 10/12/2018 FRAX%s: The graph provided illustrates a 6.1% chance for a major osteoporotic fx and a 0.3% chance fo r the hips probability for fx in 10 years time. IMPRESSION: Normal (Values between +1 and -1 indicate normal bone mass). Consider repeating this study in 5 year s or sooner if there is some new clinical indication. NOTE: T-SCORE=SD OF THE YOUNG ADULT MEAN.
--- NOTE | 2023-05-05 16:43 | MM ---
Reason for Exam: Screening (asymptomatic). Last screening mammogram was performed 12 month(s) ago. Patient History: Menarche at age 13. First Full-Term at age 23. Postmenopausal. Progesterone for 5 years from age 52 until age 57. Hormonal Contraceptives for 23 years from age 19 until age 42. Excisional Biopsy on the Left side. Excisional Biopsy on the Left side. Excisional Biopsy on the Right side. Benign Excisional Biopsy on the right side. Sister had breast cancer, age 53. Mother had breast cancer, age 65. Risk Values: Alondra 5 year model risk: 10.5%. NCI Lifetime model risk: 23.7%. Prior Study Comparison: 01/12/2020 Bilateral Screening Mammogram, [facility]. 03/29/2021 Bilateral Screening Mammogram, [facility]. 05/02/2022 Bilateral MG 3D screening mammo w/cad, [facility]. Tissue Density: There are scattered fibroglandular densities. Findings: Analyzed By CAD. Abdomen appears symmetrical. There are are multiple linear benign-appearing calcifications bilaterally. Benign spherical coarse calcifications are present bilaterally No suspicious groups of microcalcifications, spiculated or lobular masses, architectural distortion or other secondary signs of malignancy are mammographically apparent. Overall Assessment: Benign, BI-RAD 2 Management: Screening Mammogram of both breasts in 1 year. A negative mammogram report should not preclude additional follow up of suspicious palpable abnormalities. Patient should continue monthly self breast exam. A clinical breast exam by your physician is recommended on an annual basis and results should be correlated with mammographic findings. Electronically signed and approved by: Steven Valverde D.O. Radiologis
== END | disposition home or self-care (01) ==
LOC: RADMAMWWP 10:50
PROVIDERS: ATTEND Family Medicine
DX: Z12.31 Encounter for screening mammogram for malignant neoplasm of breast (principal); Z13.820 Encounter for screening for osteoporosis; Z78.0 Asymptomatic menopausal state; Z80.3 Family history of malignant neoplasm of breast
CPT/HCPCS: 77063; 77067; 77080

== ENCOUNTER 2023-09-19 23:10 | Emergency (ER) | payer MEDICARE ==
[2023-09-20 00:11] LABS: ALT 18 U/L (4-34); AST 26 U/L (14-36); African American GFR (CKD) 44 (>60 ml/min/1.73 sqM); Albumin 4.5 g/dL (3.5-5.0); Alkaline Phosphatase 57 U/L (38-126); Amylase 44 U/L (30-110); Anion Gap 13 mmol/L; Blood Urea Nitrogen 20 mg/dL (7-17); Carbon Dioxide 22 mmol/L (22-30); Chloride 107 mmol/L (98-107); Glucose 150 mg/dL (74-99); Lipase 41 U/L (23-300); Non-African American GFR(CKD) 38 (>60 ml/min/1.73 sqM); Potassium 4.8 mmol/L (3.5-5.1); Sodium 142 mmol/L (137-145); Total Bilirubin 0.7 mg/dL (0.2-1.3); Total Protein 7.5 g/dL (6.3-8.2)
[2023-09-20] MEDS: ONDANSETRON ODT 4 MG TAB PO STA ×2 (00:41→06:30)
[2023-09-20] MEDS: MORPHINE SULFATE 4 MG/ML SYRINGE IM STA (00:44)
--- NOTE | 2023-09-20 00:52 | CT ---
EXAM: CT Abdomen and Pelvis Without Intravenous Contrast CLINICAL HISTORY: R flank pain TECHNIQUE: Axial computed tomography images of the abdomen and pelvis without intravenous contrast. CTDI is 18.9 mGy and DLP is 1118 mGy-cm. This CT exam was performed using one or more of the following dose reduction techniques: automated exposure control, adjustment of the mA and/or kV according to patient size, and/or use of iterative reconstruction technique. COMPARISON: No relevant prior studies available. FINDINGS: Lung bases: Curvilinear presumed atelectatic changes of the left lower lobe adjacent to the hiatal hernia. Mediastinum: Large hiatal hernia containing the majority of the stomach in the posterior left mediastinum. There is mild to moderate distention of the stomach with retained oral contents. No definite gastric mucosal thickening, where included. ABDOMEN: Liver: Unremarkable. Gallbladder and bile ducts: Unremarkable. No calcified stones. No ductal dilation. Pancreas: Unremarkable. No ductal dilation. Spleen: Unremarkable. No splenomegaly. Adrenals: Unremarkable. No mass. Kidneys and ureters: There are three adjacent distal LEFT ureteral stones in the distal left ureter within 1 cm of the left UVJ with at least moderate proximal left hydroureteronephrosis. Prominent left perinephric fat stranding also noted. Multiple additional nephrolithiasis noted bilaterally. The largest stone burden in the left renal pelvis measures 13 mm in diameter. The largest stone burden posteriorly in the mid to inferior pole the right kidney measures 13 mm in length. There is a pedunculated hyperdense rounded structure extending from the inferior pole of the right kidney measuring 1 cm with internal Hounsfield units of 67. Stomach and bowel: No evidence for bowel obstruction. Evaluation of the bowel mucosa is slightly limited without contrast; however, no definite focal asymmetry suggested. Mild to moderate stool burden. No appreciable diverticulitis. PELVIS: Appendix: A normal caliber appendix is noted inferior to the cecum. Bladder: Unremarkable. No stones. Reproductive: Unremarkable as visualized. ABDOMEN and PELVIS: Intraperitoneal space: Unremarkable. No free air. No significant fluid collection. Bones/joints: Significant degenerative changes throughout the included thoracolumbar spine. No acute osseous abnormality. Degenerative changes involving both hips, left greater than right. No dislocation. Soft tissues: Unremarkable. Vasculature: Unremarkable. No abdominal aortic aneurysm. Lymph nodes: Unremarkable. No enlarged lymph nodes. IMPRESSION: 1. There are three adjacent distal LEFT ureteral stones in the distal left ureter within 1 cm of the left UVJ with at least moderate proximal left hydroureteronephrosis. Prominent left perinephric fat stranding also noted. 2. There is a pedunculated hyperdense rounded structure extending from the inferior pole of the right kidney measuring 1 cm with internal Hounsfield units of 67. This is a presumed hemorrhagic cyst. However, recommend nonemergent right renal ultrasound for confirmation of a cystic process and not a solid lesion. 3. Large hiatal hernia containing the majority of the stomach in the posterior left mediastinum. There is mild to moderate distention of the stomach with retained oral contents. No definite gastric mucosal thickening, where included.
[2023-09-20 01:46] LABS: Appearance,Urine Clear (Clear); Bacteria,Urine Occasional /hpf; Bilirubin,Urine Negative (Negative); Blood,Urine Negative (Negative); Color,Urine Yellow; Glucose,Urine (UA) Negative (Negative); Hyaline Casts,Urine 3 /lpf (0-2); Ketones,Urine 1+ (Negative); Leukocyte Esterase,Urine Moderate (Negative); Mucus,Urine Rare /hpf; Nitrite,Urine Negative (Negative); Protein,Urine Trace (Negative); RBC,Urine 2 /hpf (0-5); Specific Gravity,Urine 1.027 (1.001-1.035); Squamous Epithelial Cell,Urine 5 /hpf (0-4); Urobilinogen,Urine <2.0 mg/dL (<2.0); WBC,Urine 7 /hpf (0-5)
[2023-09-20] MEDS: TAMSULOSIN 0.4 MG CAP.ER.24H PO STA (02:42)
[2023-09-20] MEDS: HYDROcodone/APAP 7.5-325MG 1 EACH TAB PO ONE (02:42)
[2023-09-20 03:24] VITALS: RESP 18
--- NOTE | 2023-09-20 04:00 | ED ---
Abdominal Pain HPI - General Source: patient Mode of arrival: wheelchair Limitations: no limitations <Collin Tran - Last Filed: 09/20/23 04:12> <Luis Reyes - Last Filed: 09/20/23 23:29> - General Chief Complaint: Abdominal Pain Stated Complaint: abd pain back pain Time Seen by Provider: 09/19/23 23:20 - History of Present Illness Initial Comments: 73-year-old female presenting with chief complaint of abdominal pain. Patient started experiencing sharp left-sided flank pain and lower quadrant pain this evening. No history of kidney stones. She admits to nausea with no vomiting. Symptoms started around 730 this evening. Her last bowel movement was yesterday, this is normal for the patient. No dysuria or hematuria. She does admit to urgency and frequency. No fevers or chills. No injury or trauma. No hematochezia or melena. (Collin Tran) - Related Data Home Medications Medication Instructions Recorded Confirmed Atorvastatin [Lipitor] 10 mg PO HS 04/28/17 10/26/18 Calcium Carbonate [Calcium] 600 mg PO DAILY 04/28/17 10/26/18 Cholecalciferol [Vitamin D3 (25 5,000 unit PO DAILY 04/28/17 10/26/18 Mcg = 1000 Iu)] Fish Oil/Dha/Epa [Fish Oil 1,200 1 cap PO BID 04/28/17 10/26/18 mg Fish Oil] Gabapentin [Neurontin] 300 mg PO BID 04/28/17 10/26/18 Glucosam/Nikhil-Msm1/C/[place]/Bosw 1 tab PO BID 04/28/17 10/26/18 [Glucosamine-Chondroitin Tablet] Multivit-Min/Iron/Folic/Lutein 1 tab PO DAILY 04/28/17 10/26/18 [Centrum Silver Women Tablet] Omeprazole [PriLOSEC] 20 mg PO HS 04/28/17 10/26/18 Oxybutynin Xl [Ditropan XL] 5 mg PO DAILY 04/28/17 10/26/18 Propranolol HCl [Propranolol HCl 120 mg PO HS 04/28/17 10/26/18 ER] glipiZIDE XL [Glucotrol XL] 5 mg PO DAILY 04/28/17 10/26/18 metFORMIN HCL [Glucophage] 1,000 mg PO BID 04/28/17 10/26/18 Cyclobenzaprine [Flexeril] 10 mg PO HS PRN 08/12/17 10/26/18 Aspirin EC [Ecotrin Low Dose] 81 mg PO DAILY 10/26/18 10/26/18 Previous Rx's Medication Instructions Recorded HYDROcodone/APAP 5-325MG [[place] 1 - 2 tab PO Q6HR PRN #45 tab 10/27/18 5-325] Sennosides [Senokot] 1 tab PO BID #60 tablet 10/27/18 HYDROcodone/APAP 5-325MG [[place] 1 tab PO Q4HR PRN 3 Days #18 tab 09/20/23 5-325] Ondansetron Odt [Zofran ODT] 4 mg PO Q8HR PRN #10 tab 09/20/23 Tamsulosin [Flomax] 0.4 mg PO DAILY #14 cap 09/20/23 Allergies Allergy/AdvReac Type Severity Reaction Status Date / Time paper tape AdvReac Rash/Hives Uncoded 10/26/18 17:45 Review of Systems ROS Other: All systems not noted in ROS Statement are negative. <Collin Tran - Last Filed: 09/20/23 04:12> ROS Other: All systems not noted in ROS Statement are negative. <Luis Reyes - Last Filed: 09/20/23 23:29> ROS Statement: Those systems with pertinent positive or pertinent negative responses have been documented in the HPI. Past Medical History Past Medical History: Diabetes Mellitus, Eye Disorder, GERD/Reflux, Hyperlipidemia, Hypertension, Osteoarthritis (OA) Additional Past Medical History / Comment(s): hand tremors, urinary incontinence, BILAT CATARACTS, URINARY INCONTINENCE History of Any Multi-Drug Resistant Organisms: None Reported Past Surgical History: Joint Replacement, Orthopedic Surgery, Tonsillectomy, Tubal Ligation Additional Past Surgical History / Comment(s): repair deviated septum, BILAT CTR, BILAT TKA, COLONOSCOPY Past Anesthesia/Blood Transfusion Reactions: Postoperative Nausea & Vomiting (P ONV) Additional Past Anesthesia/Blood Transfusion Reaction / Comment(s): no transfusion problems with prior transfusion Past Psychological History: No Psychological Hx Reported Past Alcohol Use History: None Reported Past Drug Use History: None Reported - Past Family History Mother Sister(s) Family Medical History: Cancer <Collin Tran - Last Filed: 09/20/23 04:12> General Exam Limitations: no limitations General appearance: alert, in no apparent distress Head exam: Present: atraumatic, normocephalic Eye exam: Present: normal appearance, EOMI Neck exam: Present: normal inspection. Absent: meningismus Respiratory exam: Present: normal lung sounds bilaterally. Absent: respiratory distress, wheezes, rales, rhonchi, stridor Cardiovascular Exam: Present: regular rate, normal rhythm, normal heart sounds. Absent: systolic murmur, diastolic murmur, rubs, gallop, clicks GI/Abdominal exam: Present: soft, tenderness (Mild left-sided tenderness). Absent: distended, guarding, rebound, rigid Back exam: Present: normal inspection. Absent: CVA tenderness (R), CVA tender ness (L) Neurological exam: Present: alert, oriented X3 Psychiatric exam: Present: normal affect, normal mood Skin exam: Present: warm, dry <Collin Tran - Last Filed: 09/20/23 04:12> Course Vital Signs 09/19/23 09/20/23 09/20/23 23:11 02:40 06:20 Temperature 98.1 F 98.4 F 97.5 F L Pulse Rate 84 86 72 Respiratory 16 18 18 Rate Blood Pressure 145/101 121/81 131/85 O2 Sat by Pulse 96 95 96 Oximetry Medical Decision Making - Lab Data Result diagrams: 09/19/23 23:53 <Collin Tran - Last Filed: 09/20/23 04:12> - Lab Data Result diagrams: 09/20/23 04:40 09/19/23 23:53 <Luis Reyes - Last Filed: 09/20/23 23:29> - Medical Decision Making Was pt. sent in by a medical professional or institution (, PA, TEMPORARY RECEPTIONIST, urgent care, hospital, or longterm...) When possible be specific @ -No Did you speak to anyone other than the patient for history (EMS, parent, family, police, friend...)? What history was obtained from this source @ -No Did you review nursing and triage notes (agree or disagree)? Why? @ -I reviewed and agree with nursing and triage notes Were old charts reviewed (outside hosp., previous admission, EMS record, old EKG, old radiological studies, urgent care reports/EKG's, longterm records)? Report findings @ -No old charts were reviewed Differential Diagnosis (chest pain, altered mental status, abdominal pain women, abdominal pain men, vaginal bleeding, weakness, fever, dyspnea, syncope, headache, dizziness, GI bleed, back pain, seizure, CVA, palpatations, mental health, musculoskeletal)? @ -MDM Differential Abdominal Pain Women: Appendicitis, Cholecystitis, diverticulosis, ischemic bowel, pancreatitis, hepatitis, UTI, gastroenteritis, AAA, incarcerated hernia, bowel obstruction, constipation, inflammatory bowel, hepatitis, peptic ulcer disease, splenic infarction, perforated viscus, vulvitis, ovarian torsion, PID, kidney stone, placenta abruption... This is not meant to be an all-inclusive list EKG interpreted by me (3pts min.). @ -As above X-rays interpreted by me (1pt min.). @ -None done CT interpreted by me (1pt min.). @ -CT shows 3 adjacent distal ureteral stones in the distal left ureter within 1 cm of the left UVJ with at least moderate proximal left hydroureteronephrosis. Prominent left perinephritic fat stranding also noted. There is a pedunculated hyperdense rounded structure extending from the inferior pole of the right kidney measuring 1 cm with internal Hounsfield units of 67. This is a presumed hemorrhagic cyst. However recommend nonemergent right renal ul trasound for confirmation of the cystic process and not a solid lesion. Large hiatal hernia containing the majority of the stomach in the posterior left mediastinum. There is mild to moderate distention of the stomach with retained oral contents. No definite gastric mucosal thickening were included U/S interpreted by me (1pt. min.). @ -None done What testing was considered but not performed or refused? (CT, X-rays, U/S, labs)? Why? @ -None What meds were considered but not given or refused? Why? @ -None Did you discuss the management of the patient with other professionals (professionals i.e. , PA, TEMPORARY RECEPTIONIST, lab, RT, psych nurse, social media designer, roof plumber, teacher, inspectors and regulatory officers, case management social worker)? Give summary @ -No Was smoking cessation discussed for >3mins.? @ -No Was critical care preformed (if so, how long)? @ -No Were there social determinants of health that impacted care today? How? (Homelessness, low income, unemployed, alcoholism, drug addiction, transportation, low edu. Level, literacy, decrease access to med. care, [facility], rehab)? @ -No Was there de-escalation of care discussed even if they declined (Discuss DNR or withdrawal of care, Hospice)? DNR status @ -No What co-morbidities impacted this encounter? (DM, HTN, Smoking, COPD, CAD, Cancer, CVA, ARF, Chemo, Hep., AIDS, mental health diagnosis, sleep apnea, morbid obesity)? @ -None Was patient admitted / discharged? Hospital course, mention meds given and route, prescriptions, significant lab abnormalities, going to OR and other pertinent info. @ -73-year-old female presenting with chief complaint of left-sided flank pain that started suddenly this evening. Lactic acid is 3.9, patient is receiving oral rehydration. Urine shows 7 WBCs and [address] is positive for multiple renal and ureteral stones. Patient will have a repeat lactic acid drawn. Patient is signed out to my attending Dr. Reyes for further management and disposition. (Collin Tran) I reevaluated the patient. Her lactic acid has normalized. The patient is feeling better and would like to go home. We did offer admission for the patient to further manage symptoms, but patient declines. We discussed appropriate further care and follow-up related to kidney stone. We discussed r eturn parameters. Was patient admitted / discharged? Hospital course, mention meds given and route , prescriptions, significant lab abnormalities, going to OR and other pertinent info. @ -[As above Undiagnosed new problem with uncertain prognosis? @ -[No] Drug Therapy requiring intensive monitoring for toxicity (Heparin, Nitro, Insulin, Cardizem)? @ -[No] Were any procedures done? @ -[No] Diagnosis/symptom? @ -[Acute kidney stone Acute, or Chronic, or Acute on Chronic? @ -[Acute Uncomplicated (without systemic symptoms) or Complicated (systemic symptoms)? @ -[Uncomplicated Side effects of treatment? @ -[No] Exacerbation, Progression, or Severe Exacerbation? @ -[No] Poses a threat to life or bodily function? How? (Chest pain, [place], NM, pneumonia, PE, COPD, DKA, ARF, appy, cholecystitis, CVA, Diverticulitis, Homicidal, Suicidal, threat to staff... and all critical care pts) @ -[No] (Luis Reyes) - Lab Data Lab Results 09/19/23 09/19/23 09/20/23 Range/Units 23:53 23:53 01:19 WBC (3.8-10.6) k/uL RBC (3.80-5.40) m/uL Hgb (11.4-16.0) gm/dL Hct (34.0-46.0) % MCV (80.0-100.0) fL MCH (25.0-35.0) pg MCHC (31.0-37.0) g/dL RDW (11.5-15.5) % Plt Count (150-450) k/uL MPV Neutrophils % % Lymphocytes % % Monocytes % % Eosinophils % % Basophils % % Neutrophils # (1.3-7.7) k/uL Lymphocytes # (1.0-4.8) k/uL Monocytes # (0-1.0) k/uL Eosinophils # (0-0.7) k/uL Basophils # (0-0.2) k/uL Sodium 142 (137-145) mmol/L Potassium 4.8 (3.5-5.1) mmol/L Chloride 107 (98-107) mmol/L Carbon Dioxide 22 (22-30) mmol/L Anion Gap 13 mmol/L BUN 20 H (7-17) mg/dL Creatinine 1.37 H (0.52-1.04) mg/dL Est GFR (CKD-EPI)AfAm 44 (>60 ml/min/1.73 sqM) Est GFR (CKD-EPI)NonAf 38 (>60 ml/min/1.73 sqM) Glucose 150 H (74-99) mg/dL Lactic Ac Sepsis Rflx Y Plasma Lactic Acid [place] 3.9 H* (0.7-2.0) mmol/L Calcium 10.0 (8.4-10.2) mg/dL Total Bilirubin 0.7 (0.2-1.3) mg/dL AST 26 (14-36) U/L ALT 18 (4-34) U/L Alkaline Phosphatase 57 (38-126) U/L Total Protein 7.5 (6.3-8.2) g/dL Albumin 4.5 (3.5-5.0) g/dL Amylase 44 (30-110) U/L Lipase 41 (23-300) U/L Urine Color Urine Appearance (Clear) Urine pH (5.0-8.0) Ur Specific [place] (1.001-1.035) Urine Protein (Negative) Urine Glucose (UA) (Negative) Urine Ketones (Negative) Urine Blood (Negative) Urine Nitrite (Negative) Urine Bilirubin (Negative) Urine Urobilinogen (<2.0) mg/dL Ur Leukocyte Esterase (Negative) Urine RBC (0-5) /hpf Urine WBC (0-5) /hpf Ur Squamous Epith Cells (0-4) /hpf Urine Bacteria (None) /hpf Hyaline Casts (0-2) /lpf Urine Mucus (None) /hpf 09/20/23 09/20/23 09/20/23 Range/Units 01:25 04:40 04:40 WBC 14.0 H (3.8-10.6) k/uL RBC 4.40 (3.80-5.40) m/uL Hgb 14.0 (11.4-16.0) gm/dL Hct 42.1 (34.0-46.0) % MCV 95.6 (80.0-100.0) fL MCH 31.8 (25.0-35.0) pg MCHC 33.3 (31.0-37.0) g/dL RDW 14.0 (11.5-15.5) % Plt Count 296 (150-450) k/uL MPV 9.1 Neutrophils % 66 % Lymphocytes % 26 % Monocytes % 6 % Eosinophils % 1 % Basophils % 0 % Neutrophils # 9.2 H (1.3-7.7) k/uL Lymphocytes # 3.6 (1.0-4.8) k/uL Monocytes # 0.8 (0-1.0) k/uL Eosinophils # 0.1 (0-0.7) k/uL Basophils # 0.0 (0-0.2) k/uL Sodium (137-145) mmol/L Potassium (3.5-5.1) mmol/L Chloride (98-107) mmol/L Carbon Dioxide (22-30) mmol/L Anion Gap mmol/L BUN (7-17) mg/dL Creatinine (0.52-1.04) mg/dL Est GFR (CKD-EPI)AfAm (>60 ml/min/1.73 sqM) Est GFR (CKD-EPI)NonAf (>60 ml/min/1.73 sqM) Glucose (74-99) mg/dL Lactic Ac Sepsis Rflx Plasma Lactic Acid [place] 1.9 (0.7-2.0) mmol/L Calcium (8.4-10.2) mg/dL Total Bilirubin (0.2-1.3) mg/dL AST (14-36) U/L ALT (4-34) U/L Alkaline Phosphatase (38-126) U/L Total Protein (6.3-8.2) g/dL Albumin (3.5-5.0) g/dL Amylase (30-110) U/L Lipase (23-300) U/L Urine Color Yellow Urine Appearance Clear (Clear) Urine pH 5.0 (5.0-8.0) Ur Specific [place] 1.027 (1.001-1.035) Urine Protein Trace H (Negative) Urine Glucose (UA) Negative (Negative) Urine Ketones 1+ H (Negative) Urine Blood Negative (Negative) Urine Nitrite Negative (Negative) Urine Bilirubin Negative (Negative) Urine Urobilinogen <2.0 (<2.0) mg/dL Ur Leukocyte Esterase Moderate H (Negative) Urine RBC 2 (0-5) /hpf Urine WBC 7 H (0-5) /hpf Ur Squamous Epith Cells 5 H (0-4) /hpf Urine Bacteria Occasional H (None) /hpf Hyaline Casts 3 H (0-2) /lpf Urine Mucus Rare H (None) /hpf Disposition <Collin Tran - Last Filed: 09/20/23 04:12> Is patient prescribed a controlled substance at d/c from ED?: Yes When asked, does pt state using other controlled substances?: No If prescribed controlled substance>3 days was MAPS reviewed?: Prescribed <3 Days If opioid is for acute pain is fill amount 7 days or less?: Yes If Rx opioid, was Start Talking consent form obtained?: Yes <Luis Reyes - Last Filed: 09/20/23 23:29> Clinical Impression: Kidney stone Disposition: HOME SELF-CARE Condition: Fair Instructions (If sedation given, give patient instructions): Kidney Stones (ED) Prescriptions: Tamsulosin [Flomax] 0.4 mg PO DAILY #14 cap HYDROcodone/APAP 5-325MG [[place] 5-325] 1 tab PO Q4HR PRN 3 Days #18 tab PRN Reason: Pain Ondansetron Odt [Zofran ODT] 4 mg PO Q8HR PRN #10 tab PRN Reason: Nausea Referrals: Denise Bear MD [Primary Care Provider] - 1-2 days Morris Durán MD [STAFF PHYSICIAN] - 1-2 days
[2023-09-20] MEDS: HYDROmorphone 1 MG/ML 1 ML SYRINGE IM STA (04:16)
[2023-09-20] MEDS: ONDANSETRON 4 MG/2 ML VIAL IVP STA (04:19)
[2023-09-20] MEDS: MORPHINE SULFATE 4 MG/ML SYRINGE IVP STA (04:20)
[2023-09-20] MEDS: SODIUM CHLORIDE 0.9% 500 ML 500 ML IV STA (04:20)
[2023-09-20 05:53] LABS: Basophils % (A) 0 %; Eosinophils # (A) 0.1 k/uL (0-0.7); Eosinophils % (A) 1 %; HCT 42.1 % (34.0-46.0); Lymphocytes # (A) 3.6 k/uL (1.0-4.8); Lymphocytes % (A) 26 %; MCH 31.8 pg (25.0-35.0); MCHC 33.3 g/dL (31.0-37.0); MCV 95.6 fL (80.0-100.0); Mean Platelet Volume 9.1; Monocytes # (A) 0.8 k/uL (0-1.0); Monocytes % (A) 6 %; Neutrophils # (A) 9.2 k/uL (1.3-7.7); Neutrophils % (A) 66 %; Platelet Count 296 k/uL (150-450)
[2023-09-20 07:05] VITALS: BP 131/85; PULSE 72; TEMP 97.5
== END 2023-09-20 07:39 | disposition home or self-care (01) ==
LOC: EC 23:10
DX: N13.2 Hydronephrosis with renal and ureteral calculous obstruction (principal)
CPT/HCPCS: 36415 ×2; 80053; 82150; 83605 ×2; 83690; 85025; 81001; 74176; 99284; 96372 ×2; J2270; J1170

== ENCOUNTER → 2023-09-30 | Outpatient (CLI) | payer MEDICARE ==
--- NOTE | 2023-09-30 10:27 | XR ---
EXAMINATION TYPE: XR KUB DATE OF EXAM: 09/30/2023 COMPARISON: 09/19/2023 HISTORY: Bilateral kidney stones TECHNIQUE: One view abdominal series FINDINGS: The osseous structures are intact. The bowel gas pattern is nonspecific. Severe degenerative changes lumbar spine. Moderate to severe bilateral hypertrophic hip arthropathy. Left lower lobe infiltrate. There are multiple bilateral renal calculi which are similar to recent CT scan appearance and locatio n. There are at least 8 on the left and 3 on the right. The largest is seen in the left measuring 1.3 cm. Small calcification in the left hemipelvis is likely outside of the system. IMPRESSION: 1. Nonspecific abdomen. Multiple bilateral renal calculi similar in appearance to previous CT scan.
== END | disposition home or self-care (01) ==
LOC: RADXRMAIN 09:53
PROVIDERS: ATTEND Urology
DX: N20.2 Calculus of kidney with calculus of ureter (principal); K31.89 Other diseases of stomach and duodenum
CPT/HCPCS: 74018

== ENCOUNTER → 2023-10-14 | Outpatient (CLI) | payer MEDICARE | END | disposition home or self-care (01) | LOC: LABPAT 12:01 | PROVIDERS: ATTEND Urology | DX: Z01.812 Encounter for preprocedural laboratory examination (principal); N20.0 Calculus of kidney | CPT/HCPCS: 87086 ==

== ENCOUNTER 2023-10-22 10:14 | Day surgery (SDC) | payer MEDICARE ==
--- NOTE | 2023-10-17 08:40 | P.GSHP ---
History of Present Illness H&P Date: 10/17/23 Chief Complaint: Low back pain The patient is a 73-year-old white female with no prior history of urolithiasis. She recently presented with left renal colic and was found to have left hydroureteronephrosis due to 3 left distal ureteral calculi, which she has passed. CT scan also showed a 1 cm right renal pelvic calculus and multiple left renal calculi. She wishes to have her calculi removed. This will be staged, as she now comes for right ureteroscopy with laser lithotripsy and stent placement. She will subsequently undergo a left percutaneous nephrolithotomy on November 18, 2023 as the stone burden on the left warrants a PCNL rather than ureteroscopy with laser lithotripsy. - Constitutional Constitutional: Denies chills, Denies fever - Gastrointestinal Gastrointestinal: Denies nausea, Denies vomiting - Genitourinary (Female) Genitourinary: Reports flank pain, Reports kidney stones, Denies dysuria, Denies hematuria Past Medical History Past Medical History: Diabetes Mellitus, Eye Disorder, GERD/Reflux, Hyperlipidemia, Hypertension, Osteoarthritis (OA) Additional Past Medical History / Comment(s): hand tremors, urinary incontinence, BILAT CATARACTS, URINARY INCONTINENCE History of Any Multi-Drug Resistant Organisms: None Reported Past Surgical History: Joint Replacement, Orthopedic Surgery, Tonsillectomy, Tubal Ligation Additional Past Surgical History / Comment(s): repair deviated septum, BILAT CTR, BILAT TKA, COLONOSCOPY Past Anesthesia/Blood Transfusion Reactions: Postoperative Nausea & Vomiting (PONV) Additional Past Anesthesia/Blood Transfusion Reaction / Comment(s): no transfusion problems with prior transfusion Past Psychological History: No Psychological Hx Reported Past Alcohol Use History: None Reported Past Drug Use History: None Reported - Past Family History Mother Sister(s) Family Medical History: Cancer Medications and Allergies Home Medications Medication Instructions Recorded Confirmed Type Atorvastatin [Lipitor] 10 mg PO HS 04/28/17 10/26/18 History Calcium Carbonate [Calcium] 600 mg PO DAILY 04/28/17 10/26/18 History Cholecalciferol [Vitamin D3 (25 5,000 unit PO DAILY 04/28/17 10/26/18 History Mcg = 1000 Iu)] Fish Oil/Dha/Epa [Fish Oil 1,200 1 cap PO BID 04/28/17 10/26/18 History mg Fish Oil] Gabapentin [Neurontin] 300 mg PO BID 04/28/17 10/26/18 History Glucosam/Nikhil-Msm1/C/[place]/Bosw 1 tab PO BID 04/28/17 10/26/18 History [Glucosamine-Chondroitin Tablet] Multivit-Min/Iron/Folic/Lutein 1 tab PO DAILY 04/28/17 10/26/18 History [Centrum Silver Women Tablet] Omeprazole [PriLOSEC] 20 mg PO HS 04/28/17 10/26/18 History Oxybutynin Xl [Ditropan XL] 5 mg PO DAILY 04/28/17 10/26/18 History Propranolol HCl [Propranolol HCl 120 mg PO HS 04/28/17 10/26/18 History ER] glipiZIDE XL [Glucotrol XL] 5 mg PO DAILY 04/28/17 10/26/18 History metFORMIN HCL [Glucophage] 1,000 mg PO BID 04/28/17 10/26/18 History Cyclobenzaprine [Flexeril] 10 mg PO HS PRN 08/12/17 10/26/18 History Aspirin EC [Ecotrin Low Dose] 81 mg PO DAILY 10/26/18 10/26/18 History HYDROcodone/APAP 5-325MG [[place] 1 - 2 tab PO Q6HR PRN #45 tab 10/27/18 Rx 5-325] Sennosides [Senokot] 1 tab PO BID #60 tablet 10/27/18 Rx HYDROcodone/APAP 5-325MG [[place] 1 tab PO Q4HR PRN 3 Days #18 tab 09/20/23 Rx 5-325] Ondansetron Odt [Zofran ODT] 4 mg PO Q8HR PRN #10 tab 09/20/23 Rx Tamsulosin [Flomax] 0.4 mg PO DAILY #14 cap 09/20/23 Rx Allergies Allergy/AdvReac Type Severity Reaction Status Date / Time paper tape AdvReac Rash/Hives Uncoded 10/26/18 17:45 Surgical - Exam - General well developed, well nourished, no distress - Neck no masses, trachea midline - Respiratory normal respiratory effort - Abdomen Abdomen: soft, non tender, no guarding, no rigid, no rebound - Psychiatric oriented to time, oriented to person, oriented to place, speech is normal, memory intact Results - Imaging CT scan - abdomen: report reviewed, image reviewed Assessment and Plan (1) Kidney stone Status: Acute Code(s): N20.0 - CALCULUS OF KIDNEY SNOMED Code(s): 32700365 Plan: Cystoscopy, right retrograde pyelogram, right ureteroscopy with Holmium laser lithotripsy and stone basketing, right ureteral stent insertion. The procedure has been reviewed in detail with the patient. She has been made aware of potential risks, which include ureteral injury, and inability to successfully remove the calculus. Her right ureteral stent will likely be removed at the time of her secondary PCNL. She will ultimately be advised to undergo a metabolic evaluation to determine the cause of her recurrent urolithiasis.
[2023-10-20 09:46] VITALS: BMI 37.1
[~2023-10-22 10:14] MED LIST changes: -ACETAMINOPHEN TAB 500 MG TAB PO ONE; -DEXAMETHASONE SOD PHOSPHATE 10 MG/ML 1 ML VIAL IV ONE; +LIDOCAINE 1% (10MG/ML) FOR IV START INTRADERMA PRN; -MELOXICAM 7.5 MG TAB PO ONE; -ONDANSETRON 4 MG/2 ML VIAL IVP ONE; -TRANEXAMIC ACID 1,000 MG in SODIUM CHLORIDE 0.9% 100 ML IVPB ONE
--- NOTE | 2023-10-22 11:02 | XR ---
EXAMINATION TYPE: XR KUB DATE OF EXAM: 10/22/2023 COMPARISON: 09/30/2019 HISTORY: Presurgical TECHNIQUE: One view abdominal series FINDINGS: The osseous structures are intact. The bowel gas pattern is nonspecific. Severe degenerative changes lumbar spine. Moderate to severe bilateral hypertrophic hip arthropathy. Bilateral SI joint arthropat hy. There are multiple bilateral renal calculi which are similar to the recent exam and appearance and lo cation. There are at least 8 on the left and 3 on the right. The largest is seen in the left measuring 1.3 cm . Small calcification in the left hemipelvis is likely outside of the system. IMPRESSION: 1. Nonspecific abdomen. Multiple bilateral renal calculi similar in appearance to previous CT scan.
[2023-10-22] MEDS: LACTATED RINGERS 1,000 ML IV SCH (11:15)
[2023-10-22] MEDS: DEXAMETHASONE SOD PHOSPHATE 4 MG/ML 1 ML VIAL IV ONE (11:16)
[2023-10-22] MEDS: IV FLUID CONTINUATION 1,000 ML IV ONE ×2 (11:16→14:49)
[2023-10-22] MEDS: ONDANSETRON 4 MG/2 ML VIAL IVP ONE (11:16)
[2023-10-22 11:20] LABS: Glucose,Whole Blood 94 mg/dL (70-110)
[2023-10-22 11:27] VITALS: TEMP 97
[2023-10-22] MEDS ORDERED: NEOSTIGMINE 1 MG/ML 10 ML VIAL ONE (12:06)
[2023-10-22] MEDS ORDERED: PHENYLEPHRINE-0.9% NACL SYG 1,000 MCG/10 ML SYRINGE ONE (12:06)
[2023-10-22] MEDS ORDERED: fentaNYL (PF) 50 MCG/ML 2 ML AMP ONE (12:06)
[2023-10-22] MEDS ORDERED: ROCURONIUM 10 MG/ML (5 ML VIAL) IV ONE (12:06)
[2023-10-22] MEDS ORDERED: LIDOCAINE 1% INJ 10MG/ML (20 ML MDV) ONE (12:06)
[2023-10-22] MEDS ORDERED: GLYCOPYRROLATE 0.2 MG/ML 2 ML VIAL ONE (12:06)
[2023-10-22] MEDS ORDERED: SUCCINYLCHOLINE CHLORIDE 200 MG/10 ML VIAL IV ONE (12:06)
[2023-10-22] MEDS ORDERED: MIDAZOLAM 2 MG/2 ML VIAL ONE (12:06)
[2023-10-22] MEDS ORDERED: PROPOFOL 10 MG/ML 20 ML VIAL IV ONE (12:06)
[2023-10-22] MEDS: IOPAMIDOL-370 100ML BTL MISCELLANE ONE (13:17)
--- NOTE | 2023-10-22 13:40 | P.OP ---
Date of Procedure: 10/22/23 Preoperative Diagnosis: Right renal calculi Postoperative Diagnosis: Same Procedure(s) Performed: Cystoscopy, bilateral retrograde pyelograms, right ureteroscopy with Holmium laser lithotripsy and stone basketing, right ureteral stent insertion Anesthesia: SASHA Surgeon: Gasper Botello Estimated Blood Loss (ml): 5 IV fluids (ml): 700 Pathology: other (Right renal calculus fragments, sent for chemical analysis) Condition: stable Disposition: PACU Indications for Procedure: The patient is a 73-year-old white female with no prior history of urolithiasis. She recently presented with left renal colic and was found to have left hydroureteronephrosis due to 3 left distal ureteral calculi, which she has passed. CT scan also showed a 1 cm right renal pelvic calculus and multiple left renal calculi. She wishes to have her calculi removed. This will be staged, as she now comes for right ureteroscopy with laser lithotripsy and stent placement. She will subsequently undergo a left percutaneous nephrolithotomy on November 18, 2023 as the stone burden on the left warrants a PCNL rather than ureteroscopy with laser lithotripsy. Operative Findings: 2 small right lower pole renal calculi, both removed via stone basketing. 1 cm right midpole calculus, removed via laser lithotripsy and stone basketing. Description of Procedure: The patient was taken to the operating room and placed in the dorsolithotomy position, with legs supported in Frantz stirrups. The external genitalia was prepped and draped sterilely. The 30 lens was used to introduce the 21-Cymro Moya cystoscopic sheath through the urethra and into the bladder under direct vision. The bladder was examined in its entirety. Both ureteral orifices were normal anatomic location and configuration. Slight erythema surrounded the left ureteral orifice, as if he may have recently passed a left ureteral calculus. No tumors or foreign bodies were seen. Using a 10 Cymro cone-tip catheter, bilateral retrograde pyelograms were perfor med. The ureters were both normal in course and caliber, with no filling defects seen. Bilateral renal calculi were seen, greater on the left, as filling defects within the intrarenal collecting systems. A 0.038 inch Glidewire was passed through the cystoscope. The right ureteral orifice was cannulated, and the Glidewire was advanced up to the renal pelvis. The cystoscope was removed, and an 11/13-Cymro ureteral access catheter was passed over the wire, up to the proximal ureter. The [employer] flexible ureteroscope was then passed through the ureteral access catheter sheath and advanced under direct vision, up to the right renal pelvis. Each calyx was examined. 2 small calculi were seen within a lower pole calyx. Using a 1.9 Cymro 0 tip nitinol basket, both were removed via stone basketing. The larger calculus was located within a midpole calyx. The 272 micron Holmium laser probe was passed through the ureteroscope, and lithotripsy was performed utilizing a dusting mode. Ultimately, the calculus broke into multiple small fragments, which were removed using the nitinol basket. The remaining small fragments were then treated utilizing a popcorning mode, leaving no residual calculus fragments exceeding the size of the laser fiber tip. No additional calculi were seen. Pullout ureteroscopy showed no evidence of ureteral trauma. The cystoscope was replaced into the bladder. The Glidewire was passed through the cystoscope. The right ureteral orifice was cannulated, and the Glidewire was advanced up to the renal pelvis. A 24 cm, 4.8 Cymro double-J ureteral st ent was placed over the wire. Proper stent positioning was verified fluoroscopically and endoscopically. The bladder was emptied and the cystoscope removed. The patient tolerated the procedure well and was taken to the recovery room in stable condition. [facility] Report: Procedure Acuity: Elective Stone Size and Location: 1 cm, right midpole calyx Ureteral Dilation: No Ureteral Access Sheath Used: Yes Stone Sent for Analysis: Yes All Stones/Fragments Were Removed with a Basket: Yes Complications: No Preoperative Antibiotics Given: Yes Stent Placed: Yes If Stent Placed, Was String Left Attached: No If Stent Placed, When is it to be Removed: 2 weeks Discharge Medications: Ditropan XL, [place]
--- NOTE | 2023-10-22 13:40 | FL ---
EXAMINATION TYPE: FL urography retrograde DATE OF EXAM: 10/22/2023 COMPARISON: NONE HISTORY: Fluoroscopy time. Fluoroscopy was provided to the referring clinician.
[2023-10-22 13:44] LABS: Glucose,Whole Blood 90 mg/dL (70-110)
[2023-10-22 16:32] VITALS: BP 124/85; PULSE 66; RESP 20
== END 2023-10-22 16:15 | disposition home or self-care (01) ==
LOC: OR 10:14
PROVIDERS: ATTEND Urology
DX: N20.0 Calculus of kidney (principal); E78.5 Hyperlipidemia, unspecified; I10 Essential (primary) hypertension; K21.9 Gastro-esophageal reflux disease without esophagitis; M19.90 Unspecified osteoarthritis, unspecified site; Z79.84 Long term (current) use of oral hypoglycemic drugs; Z98.51 Tubal ligation status; Z79.899 Other long term (current) drug therapy
CPT/HCPCS: 52356; 82365; 74420; 74018; C2625; C1758; C1769; C1894; J2250; J0330; J1100; J2710; J0690; J2405; J2001; J3010; J2704; Q9967; J2371

== ENCOUNTER → 2023-11-10 | Outpatient (CLI) | payer MEDICARE ==
[2023-11-10 14:17] LABS: Appearance,Urine Cloudy (Clear); Bilirubin,Urine Negative (Negative); Blood,Urine Large (Negative); Color,Urine Yellow (Yellow); Ketones,Urine Negative (Negative); Nitrite,Urine Negative (Negative); Specific Gravity,Urine 1.016 (1.001-1.030); Urobilinogen,Urine 0.2 E.U./DL
[2023-11-10 14:24] LABS: Basophils # (A) 0.06 X 10*3/uL (0.00-0.10); Basophils % (A) 0.8 %; Eosinophils # (A) 0.26 X 10*3/uL (0.04-0.35); Eosinophils % (A) 3.5 %; HGB 12.6 g/dL (12.0-15.0); Lymphocytes # (A) 3.42 X 10*3/uL (0.90-5.00); Lymphocytes % (A) 45.7 %; MCH 31.3 pg (27.0-32.0); MCHC 31.5 g/dL (32.0-37.0); MCV 99.3 FL (80.0-97.0); Mean Platelet Volume 12.1 FL (9.5-12.2); Monocytes # (A) 0.61 X 10*3/uL (0.20-1.00); Monocytes % (A) 8.2 %; NRBC Per 100 WBC 0 X 10*3/uL (0.00-0.01); Neutrophils # (A) 3.12 X 10*3/uL (1.80-7.70); Neutrophils % (A) 41.7 %; Platelet Count 269 X 10*3/uL (140-440); RBC 4.03 X 10*6/uL (4.10-5.20); RDW 14.3 % (11.5-14.5); WBC 7.48 X 10*3/uL (4.50-10.00)
[2023-11-10 14:37] LABS: BUN/Creat Ratio 12.92 Ratio (12.00-20.00); Blood Urea Nitrogen 15.5 mg/dL (9.0-27.0); Calcium 9.6 mg/dL (8.7-10.3); Carbon Dioxide 23.7 mmol/L (21.6-31.8); Chloride 109 mmol/L (96-109); Glucose 129 mg/dL (70-110); Potassium 5.1 mmol/L (3.5-5.5); Sodium 148 mmol/L (135-145)
[2023-11-10 16:54] LABS: Bacteria,Urine 2+ (None Seen)
== END | disposition home or self-care (01) ==
LOC: LABPAT 09:51
PROVIDERS: ATTEND Urology
DX: Z01.812 Encounter for preprocedural laboratory examination (principal); N20.0 Calculus of kidney
CPT/HCPCS: 80048; 81001; 85025; 87086

== ENCOUNTER 2023-11-18 06:45 | Day surgery (SDC) | payer MEDICARE ==
--- NOTE | 2023-11-17 10:11 | P.GSHP ---
History of Present Illness H&P Date: 11/17/23 73-year-old female with stones. Recently she had right ureteroscopy and laser lithotripsy by Dr. bowels. 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 She was sent to me to consider percutaneous nephrostolithotomy. She was interviewed and we discussed all the risks and complications for a left percutaneous nephrostolithotomy including infection bleeding pain injury to the kidney injury to adjacent organs a. She also understands it may take more than one treatment to. We may not be old access the kidney. She comes for this procedure. I also remove the right stent. - Constitutional Constitutional: Denies chills, Denies fever - EENT Eyes: denies blurred vision, denies pain Ears, nose, mouth and throat: Denies headache, Denies sore throat - Cardiovascular Cardiovascular: Denies chest pain, Denies shortness of breath - Respiratory Respiratory: Denies cough, Denies 7 - Gastrointestinal Gastrointestinal: Denies abdominal pain, Denies diarrhea, Denies nausea, Denies vomiting - Genitourinary (Female) Genitourinary: Denies dysuria, Denies hematuria - Genitourinary (Male) Genitourinary: Denies dysuria, Denies hematuria - Musculoskeletal Musculoskeletal: Denies myalgias - Integumentary Integumentary: Denies pruritus, Denies rash - Neurological Neurological: Denies numbness, Denies weakness - Psychiatric Psychiatric: Denies anxiety, Denies depression - Endocrine Endocrine: Denies fatigue, Denies weight change Past Medical History Past Medical History: Diabetes Mellitus, Eye Disorder, GERD/Reflux, Hyperlipidemia, Hypertension, Osteoarthritis (OA) Additional Past Medical History / Comment(s): hand tremors, urinary incontinence, BILAT CATARACTS, URINARY INCONTINENCE History of Any Multi-Drug Resistant Organisms: None Reported Past Surgical History: Joint Replacement, Orthopedic Surgery, Tonsillectomy, Tubal Ligation Additional Past Surgical History / Comment(s): repair deviated septum, BILAT CTR, BILAT TKA, COLONOSCOPY, Past Anesthesia/Blood Transfusion Reactions: Postoperative Nausea & Vomiting (PONV) Additional Past Anesthesia/Blood Transfusion Reaction / Comment(s): no transfusion problems with prior transfusion Smoking Status: Never smoker - Past Family History Mother Sister(s) Family Medical History: Cancer Medications and Allergies Home Medications Medication Instructions Recorded Confirmed Type Atorvastatin [Lipitor] 10 mg PO HS 04/28/17 11/16/23 History Cholecalciferol [Vitamin D3 (25 5,000 unit PO TUSA 04/28/17 11/16/23 History Mcg = 1000 Iu)] Omeprazole [PriLOSEC] 20 mg PO HS 04/28/17 11/16/23 History Oxybutynin Xl [Ditropan XL] 5 mg PO QAM 04/28/17 11/16/23 History glipiZIDE XL [Glucotrol XL] 5 mg PO DAILY 04/28/17 11/16/23 History Cyclobenzaprine [Flexeril] 10 mg PO HS PRN 08/12/17 11/16/23 History Aspirin EC [Ecotrin Low Dose] 81 mg PO DAILY 10/26/18 11/16/23 History Gabapentin 300 mg PO BID 10/20/23 11/16/23 History atenoloL 25 mg PO QAM 10/20/23 11/16/23 History atenoloL 50 mg PO HS 10/20/23 11/16/23 History metFORMIN HCL [Glucophage] 500 mg PO BID 10/20/23 11/16/23 History Allergies Allergy/AdvReac Type Severity Reaction Status Date / Time paper tape AdvReac Rash/Hives Uncoded 11/16/23 08:29 Surgical - Exam - General well developed, well nourished, no distress - Eyes normal ocular movement, no icteric - ENT no hearing loss, no congestion - Neck no masses, trachea midline - Respiratory normal respiratory effort, clear to auscultation - Abdomen Abdomen: soft, non tender, no guarding, no rigid, no rebound - Integumentary no rash, no abnormal pigmentation - Neurologic no disoriented, no combative - Psychiatric oriented to time, oriented to person, oriented to place, speech is normal, memory intact Results - Imaging CT scan - abdomen: report reviewed, image reviewed CT scan - pelvis: report reviewed, image reviewed Assessment and Plan Assessment: Impression: Left renal stone, large (greater than 2 cm). Recommendation plan percutaneous nephrostolithotomy left
[~2023-11-18 06:45] MED LIST changes: -HYDROmorphone 0.5 MG/0.5 ML SYRINGE IVP PRN; -MIDAZOLAM 2 MG/2 ML VIAL IV PRN
[2023-11-18] MEDS: IV FLUID CONTINUATION 1,000 ML IV ONE ×2 (07:50→11:17)
[2023-11-18 08:09] LABS: Glucose,Whole Blood 122 mg/dL (70-110)
[2023-11-18] MEDS: DEXAMETHASONE SOD PHOSPHATE 4 MG/ML 1 ML VIAL IV ONE (08:17)
[2023-11-18] MEDS: LACTATED RINGERS 1,000 ML IV SCH (08:17)
[2023-11-18] MEDS: ONDANSETRON 4 MG/2 ML VIAL IVP ONE (08:17)
--- NOTE | 2023-11-18 08:48 | XR ---
EXAMINATION TYPE: XR KUB DATE OF EXAM: 11/18/2023 7:05 AM CLINICAL INDICATION:Female, 73 years old with history of kidney stones; COMPARISON: Multiple left-sided renal stones. Appropriate placement of the right ureteral calculus. TECHNIQUE: One radiographic view of the abdomen was obtained. FINDINGS: The bowel gas pattern is nonspecific without dilated loops of small or large bowel. There i s no evidence for organomegaly or pneumoperitoneum. The osseous structures are intact. Left renal c alculi measuring up to 17. Mm. Fecal material and gas are demonstrated throughout the colon and rectu m. IMPRESSION: 1. Appropriate placement of right ureteral stent. 2. Multiple left renal calculi measuring up to 17 mm. 3. Nonspecific bowel gas pattern without radiographic evidence for acute process.
[2023-11-18] MEDS: IOPAMIDOL-370 100ML BTL MISCELLANE ONE (10:21)
[2023-11-18] MEDS ORDERED: NALOXONE 0.4 MG/ML 1 ML VIAL IV PRN (11:09)
[2023-11-18] MEDS ORDERED: ACETAMINOPHEN TAB 325 MG TAB PO PRN (11:10)
[2023-11-18] MEDS ORDERED: ONDANSETRON 4 MG/2 ML VIAL IVP PRN (11:10)
[2023-11-18] MEDS ORDERED: MAG HYDROX/AL HYDROX/SIMETH 30 ML CUP PO PRN (11:10)
--- NOTE | 2023-11-18 11:17 | P.PCN ---
Date of Procedure: 11/18/23 Preoperative Diagnosis: left renal stones, large(greater than 2 cm) Postoperative Diagnosis: same Procedure(s) Performed: percutaneous access left kidney Anesthesia: GETA Surgeon: Morris Durán Indications for Procedure: the patient has a large renal pelvic stone, greater than 2 cm plus small calyceal stones. She comes for percutaneous nephrostolithotomy. I'll perform percutaneous access Description of Procedure: the patient has previously been brought to the operating suite and anesthetized. An occluding balloon catheters been placed. She's been previously placed in a prone position with care to airways and extremities with a sterile prep and drape. There is injected through the occluding balloon catheter to outline the internal anatomy of the collecting system of the left kidney. The left upper pole calyx was then identified. Using a 21-gauge Chiba needle I punctured the left upper pole calyx. I then advanced the cope mandrel wirethrough the Chiba needle into the collecting system and down the proximal ureter. I removed the Chiba needle and introduce a 6-Czech dilating catheter down the proximal ureter. The inner portion of the catheters removed and I then pass a 0.35 Super Stiff wire down the left ureter. Over the superstiff wire then pass an 8-10-Czech dilating catheter. The inner catheters removed into the 10-Czech catheter I passed a second safety wire down the left ureter. I removed the 10- Czech dilating catheter and over the working wire passed the dilating nephrostomy tract balloon and dilated the tract to 30-Czech and then introduced the nephrostomy tract sheath, 30-Czech into the collecting system.
--- NOTE | 2023-11-18 11:20 | P.OP ---
Date of Procedure: 11/18/23 Preoperative Diagnosis: left renal stones, large, greater than 2 cm Postoperative Diagnosis: same Procedure(s) Performed: cystoscopy, removal double-J catheter right, placement of occluding balloon catheter left. Percutaneous nephrostolithotomy with ultrasound, placement of 10 J nephrostomy Anesthesia: SASHA Surgeon: Morris Durán Estimated Blood Loss (ml): 25 Pathology: other (stone) Condition: stable Disposition: PACU Indications for Procedure: the patient is 73. She has a history kidney stones. She has a large collection of left renal pelvic stones the largest greater than 2 cm in the left renal pelvis.she comes for percutaneous nephrostolithotomy Description of Procedure: patient brought operating suite. On the transport liya is given a general anesthetic. She's placed in a lithotomy position. Sterile prep and drape was administered. The bladder is intubated with a 21-Korean cystoscope. The right double-J catheters grasped and removed. Through the left ureter a 5-Korean occluding balloon is passed up into the kidney. It is secured to a 16-Korean Cruz Patient is placed in a prone position to care to airways and extremities. I then place a nephrostomy tube in the upper pole calyx and this is dictated separately. Then through the nephrostomy tract sheath in the left upper pole calyx and introduced the rigid scope. I grasped several smaller stones and remove them through the nephrostomy tract. I then identify the large renal pelvic stone and use ultrasound to break it into smaller pieces and then remove the fragments with the grasping forceps. I then looked throughout the collecting system of the left kidney and see no remaining stones. A 10 J nephrostomy tubes placed over the working wire and secured to the skin the patient's awake and returned recovery in good condition. Blood loss is 25 mL. She tolerated procedure well be kept in the hospital overnight.
[2023-11-18 11:22] LABS: Glucose,Whole Blood 126 mg/dL (70-110)
--- NOTE | 2023-11-18 11:23 | FL ---
EXAMINATION TYPE: FL Perc Nephrostomy New Access Intraoperative/procedural fluoroscopic services were provided. CLINICAL INDICATION:Female, 73 years old with history of LEFT RENAL CALCULI; , [facility] Total fluoroscopy time is 1.09 min. DAP: 0.11670 Gycm2 Please see the operative/procedural note for further details.
[2023-11-18] MEDS: HYDROmorphone 0.5 MG/0.5 ML SYRINGE IVP PRN (12:03)
[2023-11-18] MEDS: SODIUM CHLORIDE 0.45% 1,000 ML IV SCH (14:03)
[2023-11-18] MEDS: HYDROmorphone PCA 10 MG/50 ML BAG IV PRN (16:22)
[2023-11-18 16:27] LABS: Glucose,Whole Blood 157 mg/dL (70-110)
[2023-11-18 20:19] LABS: Glucose,Whole Blood 164 mg/dL (70-110)
[2023-11-18] MEDS: metFORMIN 500 MG TAB PO SCH (21:35)
[2023-11-18] MEDS: ATORVASTATIN 10 MG TAB PO SCH (21:35)
[2023-11-18] MEDS: GABAPENTIN 300 MG CAP PO SCH (21:35)
[2023-11-18] MEDS: PANTOPRAZOLE 40 MG TABLET PO SCH (21:35)
[2023-11-18] MEDS: atenoloL 50 MG TAB PO SCH (21:35)
[2023-11-19 06:34] LABS: Glucose,Whole Blood 136 mg/dL (70-110)
[2023-11-19 08:25] VITALS: BP 101/68
[2023-11-19 08:27] VITALS: TEMP 98.2
[2023-11-19] MEDS: OXYBUTYNIN XL 5 MG TAB.ER.24 PO SCH (08:31)
[2023-11-19] MEDS: atenoloL 25 MG TAB PO SCH (08:31)
--- NOTE | 2023-11-19 10:37 | P.DS ---
Providers Expected date of discharge: 11/19/23 Attending physician: Morris Durán [facility] Course: On the day of admission, the patient underwent an uncomplicated left percutaneous nephrolithotomy (PCNL). The perioperative course was unremarkable. The patient remained afebrile with stable vital signs. On the first postoperative day, she was comfortable. The nephrostomy tube was draining blood-tinged urine. The urine draining from the Cruz catheter was essentially clear. The patient denied pain and stated that she was feeling well. Procedures: Left PCNL on November 18, 2023. Patient Condition at Discharge: Good Plan - Discharge Summary Discharge Rx Participant: Yes New Discharge Prescriptions: No Action Cholecalciferol [Vitamin D3 (25 Mcg = 1000 Iu)] 5,000 unit PO TUSA glipiZIDE XL [Glucotrol XL] 5 mg PO DAILY Oxybutynin Xl [Ditropan XL] 5 mg PO QAM Omeprazole [PriLOSEC] 20 mg PO HS Atorvastatin [Lipitor] 10 mg PO HS Cyclobenzaprine [Flexeril] 10 mg PO HS PRN PRN Reason: Pain Aspirin EC [Ecotrin Low Dose] 81 mg PO DAILY metFORMIN HCL [Glucophage] 500 mg PO BID Gabapentin 300 mg PO BID atenoloL 25 mg PO QAM atenoloL 50 mg PO HS Discharge Medication List Atorvastatin [Lipitor] 10 mg PO HS 04/28/17 [History] Cholecalciferol [Vitamin D3 (25 Mcg = 1000 Iu)] 5,000 unit PO TUSA 04/28/17 [History] Omeprazole [PriLOSEC] 20 mg PO HS 04/28/17 [History] Oxybutynin Xl [Ditropan XL] 5 mg PO QAM 04/28/17 [History] glipiZIDE XL [Glucotrol XL] 5 mg PO DAILY 04/28/17 [History] Cyclobenzaprine [Flexeril] 10 mg PO HS PRN 08/12/17 [History] Aspirin EC [Ecotrin Low Dose] 81 mg PO DAILY 10/26/18 [History] Gabapentin 300 mg PO BID 10/20/23 [History] atenoloL 25 mg PO QAM 10/20/23 [History] atenoloL 50 mg PO HS 10/20/23 [History] metFORMIN HCL [Glucophage] 500 mg PO BID 10/20/23 [History] Follow up Appointment(s)/Referral(s): Morris Durán MD [STAFF PHYSICIAN] - 11/24/23 Activity/Diet/Wound Care/Special Instructions: Discharge home with left nephrostomy tube. Instruct patient how to drain nephrostomy tube bag. Encourage oral fluid intake. Discharge Disposition: HOME SELF-CARE
[2023-11-19 11:32] LABS: Glucose,Whole Blood 112 mg/dL (70-110)
[2023-11-19 15:30] VITALS: PULSE 78; RESP 16
== END 2023-11-19 15:49 | disposition home or self-care (01) ==
LOC: OR 06:45 → 4SSUR 11:08 → OR 11-19 15:49
PROVIDERS: ATTEND Urology
DX: N20.0 Calculus of kidney (principal); I10 Essential (primary) hypertension; K21.9 Gastro-esophageal reflux disease without esophagitis; E11.69 Type 2 diabetes mellitus with other specified complication; E78.5 Hyperlipidemia, unspecified; Z79.899 Other long term (current) drug therapy; Z79.84 Long term (current) use of oral hypoglycemic drugs; Z79.82 Long term (current) use of aspirin; Z91.09 Other allergy status, other than to drugs and biological substances
CPT/HCPCS: 82365; 50432; 74018; 50080; C1769; C1894; C1729; J1100; J0690; J2405; J1170 ×2; Q9967

== ENCOUNTER → 2024-04-04 | Outpatient (CLI) | payer MEDICARE ==
--- NOTE | 2024-04-04 10:51 | XR ---
EXAMINATION TYPE: XR KUB DATE OF EXAM: 04/04/2024 10:13 AM COMPARISON: 11/18/2023 CLINICAL INDICATION: Female, 74 years old with history of N20.0 calculus; TECHNIQUE: One radiographic view of the abdomen was obtained. FINDINGS: The bowel gas pattern is nonspecific without dilated loops of small or large bowel. . Fecal material and gas are demonstrated throughout the colon and rectum. There is no evidence for organomegaly or pneumoperitoneum. The osseous structures are intact. No ab normal calcifications are present. Altered level degeneration changes throughout the spine. IMPRESSION: 1. Nonspecific bowel gas pattern without radiographic evidence for acute process. 2. Severe multilevel degeneration changes of spine. [facility], , 04/04/2024 10:49 AM
== END | disposition home or self-care (01) ==
LOC: RADXRMAIN 09:58
PROVIDERS: ATTEND Urology
DX: N20.0 Calculus of kidney (principal); M47.819 Spondylosis without myelopathy or radiculopathy, site unspecified
CPT/HCPCS: 74018

== ENCOUNTER → 2024-05-09 | Outpatient (CLI) | payer MEDICARE ==
--- NOTE | 2024-05-10 15:01 | MM ---
Reason for Exam: Screening (asymptomatic). Last screening mammogram was performed 12 month(s) ago. Patient History: Menarche at age 13. First Full-Term at age 23. Postmenopausal. Progesterone for 5 years from age 52 until age 57. Hormonal Contraceptives for 23 years from age 19 until age 42. Excisional Biopsy on the Left side. Excisional Biopsy on the Left side. Excisional Biopsy on the Right side. Benign Excisional Biopsy on the right side. Sister had breast cancer, age 53. Mother had breast cancer, age 65. Risk Values: Alondra 5 year model risk: 10.5%. NCI Lifetime model risk: 22.5%. Prior Study Comparison: 03/29/2021 Bilateral Screening Mammogram, [facility]. 05/02/2022 Bilateral MG 3D screening mammo w/cad, [facility]. 05/04/2023 Bilateral MG 3D screening mammo w/cad, [facility]. Tissue Density: The breasts are heterogeneously dense, which may obscure small masses. Findings: Analyzed By CAD. There is no suspicious group of microcalcifications or new suspicious mass in either breast. Overall Assessment: Benign, BI-RAD 2 Management: Screening Mammogram of both breasts in 1 year. . Patient should continue monthly self-breast exams. A clinical breast exam by your physician is recommended on an annual basis. This exam should not preclude additional follow-up of suspicious palpable abnormalities. Note on Alondra scores and lifetime risk: 1. A Alondra score greater than 3% is considered moderate risk. If this is the case, consider specialist referral to assess eligibility for a risk reducing agent. 2. If overall lifetime risk for the development of breast cancer is 20% or higher, the patient may qualify for future screening with alternating mammogram and breast MRI. [facility], , 05/10/2024 2:58 PM. Electronically signed and approved by: Emil Walker M.D. Radiolog[facility]
== END | disposition home or self-care (01) ==
LOC: RADMAMWWP 10:34
PROVIDERS: ATTEND Family Medicine
DX: Z12.31 Encounter for screening mammogram for malignant neoplasm of breast (principal); Z78.0 Asymptomatic menopausal state; Z80.3 Family history of malignant neoplasm of breast; R92.333 Mammographic heterogeneous density, bilateral breasts
CPT/HCPCS: 77063; 77067